=== PATIENT | female | born 1950 | race Caucasian/White ===

== ENCOUNTER → 2018-12-18 11:56 | Outpatient (CLI) | payer MEDICARE, OTHER, SELFPAY ==
[2018-12-18 12:43] LABS: Alanine Aminotransferase 27 IU/L (9-52); Albumin 4.5 g/dL (3.5-5.0); Albumin Globulin Ratio 1.9 (1.0-2.8); Alkaline Phosphatase 55 U/L (38-126); Aspartate Aminotransferase 23 IU/L (14-36); BUN Creatinine Ratio 24.4 (6-22); Bilirubin Total 0.6 mg/dL (0.2-1.3); Blood Urea Nitrogen 22 mg/dL (7-17); Carbon Dioxide 28 mmol/L (22-32); Chloride 103 mmol/L (98-107); Cholesterol 202 mg/dL (140-199); Estimated Glomerular Filt Rate > 60.0 mL/min (>60); Globulin 2.4 g/dL (1.7-4.1); Glucose 94 mg/dL (80-110); HDL Cholesterol 75 mg/dL (40-60); HEMOLYSIS < 15 (0-50); LDL Cholesterol Calculated 113 mg/dL (<100); Magnesium 2.2 mg/dL (1.6-2.3); Sodium 139 mmol/L (137-145); Total Protein 6.9 g/dL (6.3-8.2); Triglycerides 71 mg/dL (35-150)
== END ==
PROVIDERS: Family Provider Internal Medicine; PCP Internal Medicine; Visit Provider Specialist
DX: E78.5 Hyperlipidemia, unspecified (principal); I47.1 Supraventricular tachycardia
CPT/HCPCS: 36415; 80053; 80061; 83735

== ENCOUNTER → 2019-01-14 14:28 | Outpatient (CLI) | payer MEDICARE, OTHER, SELFPAY | PROVIDERS: Family Provider Internal Medicine; PCP Internal Medicine; Visit Provider Physician Assistant | DX: N39.0 Urinary tract infection, site not specified (principal) | CPT/HCPCS: 87086 ==

== ENCOUNTER → 2019-01-22 08:00 | Outpatient (CLI) | payer MEDICARE, OTHER, SELFPAY ==
--- NOTE | 2019-01-22 | DI.US.S_ITS ---
PROCEDURE: US ABD AORTA ANEURYSM SCREEN INDICATIONS: PALPABLE AORTA TECHNIQUE: Real time scanning was performed of the aorta and iliac arteries, with image documentation. COMPARISON: None. FINDINGS: Aorta: Proximal aortic diameter measures 2.2 cm. Mid-aorta measures 1.5 cm. Distal aortic diameter is 1.3 cm. Iliac arteries: Right common iliac artery measures 0.9 cm. Left common iliac artery measures 0.9 cm. IMPRESSION: Negative for aneurysm. Dictated by: Zac Marshall M.D. on 01/23/2019 at 12:28 Approved by: Zac Marshall M.D. on 01/23/2019 at 12:28
== END ==
PROVIDERS: Family Provider Internal Medicine; PCP Internal Medicine; Visit Provider Specialist
DX: R09.89 Other specified symptoms and signs involving the circulatory and respiratory systems (principal)
CPT/HCPCS: 76706

== ENCOUNTER → 2019-02-08 15:01 | Outpatient (CLI) | payer MEDICARE, OTHER, SELFPAY ==
--- NOTE | 2019-02-08 | DI.RAD.S_ITS ---
PROCEDURE: XR CHEST 2V INDICATIONS: COUGH TECHNIQUE: 2 views of the chest were acquired. COMPARISON: None. FINDINGS: Surgical changes and devices: None. Lungs and pleura: There is a 9 mm nodule in the right upper lobe. Lungs are otherwise clear. No pleural effusions or pneumothorax. Mediastinum: Mediastinal contours are normal. Heart size is normal. Bones and chest wall: No suspicious bony abnormalities. Soft tissues appear unremarkable. IMPRESSION: Question a 9 mm right upper lobe nodule. Chest CT is recommended for followup. Dictated by: Aubrey Stout M.D. on 02/08/2019 at 17:12 Approved by: Aubrey Stout M.D. on 02/08/2019 at 17:14
== END ==
LOC: LAB 15:02 → RAD 15:05
PROVIDERS: Family Provider Internal Medicine; PCP Internal Medicine; Visit Provider Internal Medicine
DX: R05 Cough (principal)
CPT/HCPCS: 71046

== ENCOUNTER → 2019-02-23 11:08 | Outpatient (CLI) | payer MEDICARE, OTHER, SELFPAY ==
--- NOTE | 2019-02-23 | DI.US.S_ITS ---
PROCEDURE: US THYROID INDICATIONS: FATIGUE TECHNIQUE: Real-time scanning was performed of the thyroid gland, with image documentation. COMPARISON: None. FINDINGS: Right: Thyroid lobe measures 5 x 0.8 x 1.1 cm, and is homogeneous in echotexture. Left: Thyroid lobe measures 4.0 x 0.5 x 1.2 cm, and is homogenous in echotexture. Isthmus: 2 mm thick. Nodule number: #1 Location: Upper pole right thyroid lobe Size: 0.3 x 0.2 x 0.2 cm. Composition: Cystic Echogenicity: Shape: Slight interval Margins: Smooth Echogenic foci: Punctate Total points: 3 ACR TI-RADS category: 3 Nodule number: #2 Location: Medial aspect of upper pole left thyroid lobe Size: 1.1 x 0.5 x 0.8 cm. Composition: Solid Echogenicity: Isoechoic to hypoechoic Shape: Wider than tall Margins: Smooth Echogenic foci: None Total points: 4 ACR TI-RADS category: 4 Nodule number: #3 Location: Lateral aspect of upper pole left renal Size: 5 x 3 x 4 mm. Composition: Solid Echogenicity: Hypoechoic Shape: Wider than tall Margins: Smooth Echogenic foci: None Total points: 4 ACR TI-RADS category: 4 IMPRESSION: 3 thyroid nodules as described in detail above. Sonographic followup is recommended. ACR TI-RADS definitions and recommendations: TI-RADS 1 (benign): 0 points. FNA not needed. TI-RADS 2 (not suspicious): 2 points. FNA not needed. TI-RADS 3 (mildly suspicious): 3 points. * FNA if 2.5 cm or larger, follow up if 1.5 cm or larger (1, 3, and 5 years). TI-RADS 4 (moderately suspicious): 4-6 points. * FNA if 1.5 cm or larger, follow up if 1 cm or larger (1, 2, 3, and 5 years). TI-RADS 5 (highly suspicious): 7 points or more. * FNA if 1 cm or larger, follow up if 0.5 cm or larger (every year for 5 years). Dictated by: Jd Clinton M.D. on 02/23/2019 at 14:26 Approved by: Jd Clinton M.D. on 02/23/2019 at 14:31
--- NOTE | 2019-02-23 11:15 | DI.CT.S_ITS ---
PROCEDURE: CT CHEST WO CON INDICATIONS: Cough. Nodule on prior Chest X-ray TECHNIQUE: Noncontrast 2.0-2.5 mm thick sections acquired from the pulmonary apices to the posterior costophrenic angles. 7 mm thick coronal and sagittal MIP reformats were then acquired. A low radiation dose technique was utilized. COMPARISON: [facility], CR, XR CHEST 2V, 02/08/2019, 15:10. FINDINGS: Image quality: Diagnostic, given the low radiation dose technique. Lungs and pleura: There is biapical scarring. 3-4 mm part solid nodular density in the anterior aspect of right middle lobe is seen series 3 image 33. No other pulmonary nodule or mass is seen. No pleural effusion or pneumothorax. Central and peripheral airway is patent. Mediastinum: Heart size is normal. No pericardial effusion. No mediastinal adenopathy by size criteria. Thoracic aorta and central pulmonary arteries are normal in size. Esophagus is normal in caliber. There is a small hiatal hernia. Bones and chest wall: No suspicious bony lesions. No vertebral body compression fractures. No axillary or supraclavicular adenopathy by size criteria. Thyroid gland is within normal limits. Abdomen: Visualized upper abdomen solid organs and bowel loops appear normal in the absence of contrast. IMPRESSION: 1. 3-4 mm part solid nodular density in the anterior aspect of right middle lobe. No other pulmonary nodular mass is seen. Biapical scarring. Consider followup study in 12 months. 2. No mediastinal or hilar lymphadenopathy. Fleischner Society criteria for SOLID lung nodule followup. Nodule size (mm)Low-risk patientHigh-risk patient<6 (single or multiple)No routine followup.Optional CT at 12 months. 6-8 (single or multiple)CT at 6-12 months, then optional CT at 18-24 mo.CT at 6-12 months, then CT at 18-24 months. >8 (single)CT at 3 months, PET-CT, or biopsy. Same as for low-risk pts. >8 (multiple)CT at 3-6 months, then optional CT at 18-24 mo.CT at 3-6 months, then CT at 18-24 months. Fleischner Society criteria for SUB-SOLID lung nodule followup. Solitary pure ground-glass nodules<6 mm (ground glass or part solid)No followup needed. 6 mm or larger (ground glass)CT at 6-12 months to confirm persistence, then CT every 2 years until 5 years.6 mm or larger (part solid)CT at 3-6 months to confirm persistence, then annual CT until 5 years if unchanged and solid component remains <6 mm. Multiple sub-solid nodules<6 mmCT at 3-6 months, then CT consider at 2 & 4 years for high risk patients. [address] at 3-6 months. Subsequent management based on most suspicious lesions. Recommendations do not apply to lung cancer screening, patients with immunosuppression, or patients with known primary cancer. Dictated by: Jd Clinton M.D. on 02/23/2019 at 14:16 Approved by: Jd Clinton M.D. on 02/23/2019 at 14:20
== END ==
PROVIDERS: PCP Internal Medicine; Visit Provider Internal Medicine
DX: R05 Cough (principal); R91.1 Solitary pulmonary nodule; R53.83 Other fatigue; E04.2 Nontoxic multinodular goiter
CPT/HCPCS: 71250; 76536

== ENCOUNTER → 2019-03-13 13:45 | Outpatient (CLI) | payer MEDICARE, OTHER, SELFPAY ==
--- NOTE | 2019-03-13 | DI.ECHO.S_ITS ---
[place] +---------+ Hospital +---------+ : : [address] : : : : [id number] : : : : Phone: [phone] Echocardiogram Report + + :Name: HARRIS NEVAREZ Study Date: 03/13/2019 Height: 66 in : :[facility] Exam Location: IS Weight: 151 lb : : Gender: Female BSA: 1.8 m2 : :: 1950 Age: 68 yrs BP: 120/70 mmHg: :Reason For Study: Palpitations : :Ordering Physician: Venkata : :Gregory Performed By: Melania Page : + + Interpretation Summary The left ventricle is normal in size, wall thickness, and systolic function without any focal wall motion abnormalities with the ejection fraction visually estimated to be 60-65%. Diastolic parameters suggest probable normal left ventricular diastolic function and normal filling pressures. There has been no significant change since the previous study. The right ventricle is normal in size and function and is unchanged compared to the previous study. The right ventricular systolic pressure is estimated to be at least 23 mmHg based on an estimated right atrial pressure of 8 mm Hg, and is similar compared to the previous study. Both atria are mildly dilated but are grossly appeared unchanged compared to the previous study. There is mild mitral regurgitation and mild tricuspid regurgitation that are unchanged compared to the previous study. There is no other significant valvular heart disease. The ascending aorta is mild-moderately enlarged but is unchanged compared to the previous study. Procedure: A two-dimensional transthoracic echocardiogram with color flow and Doppler was performed. The study quality was technically adequate. Comparison is made with the echocardiogram of 05/17/2016. The heart rate ranged between 52-62 bpm during the study. The patient had occasional PVCs during the exam. Left Ventricle: The left ventricle is normal in size, wall thickness, and systolic function without any focal wall motion abnormalities. The ejection fraction is estimated to be 60-65%. Diastolic parameters suggest probable normal left ventricular diastolic function and normal filling pressures. There has been no significant change since the previous study. Right Ventricle: The right ventricle is normal in size and function. This is unchanged compared to the previous study. Atria: Both atria are mildly dilated. This is grossly appeared unchanged compared to the previous study. The interatrial septum is intact with no evidence for an atrial septal defect. There is no Doppler evidence for an interatrial shunt. Mitral Valve: The mitral valve leaflets appear mildly thickened, but open well. There is a flat closure plane of the the mitral valve leaflets. There is mild mitral regurgitation. This is unchanged compared to the previous study. Aortic Valve: The aortic valve is trileaflet. The aortic valve is slightly calcified. The aortic valve opens well. No aortic regurgitation is present. Tricuspid Valve: The tricuspid valve is normal in structure and function. There is mild tricuspid regurgitation. This is unchanged compared to the previous study. The right ventricular systolic pressure is estimated to be at least 23 mmHg based on an estimated right atrial pressure of 8 mm Hg. This is similar compared to the previous study. Pulmonic Valve: The pulmonic valve is not well visualized. There is trace pulmonic regurgitation. There is no other significant valvular heart disease. Great Vessels: The aortic root is normal size. The ascending aorta is mild- moderately enlarged. This is unchanged compared to the previous study. The aortic arch is normal in size. The pulmonary is not well visualized. The IVC is dilated (diameter is greater than 2.1 cm) yet it collapses greater than 50% with a sniff. This suggests a right atrial pressure of 8 mm Hg. Pericardium/ Pleura There is no pericardial effusion. There is no pleural effusion. MMode/2D Measurements & Calculations LVIDd: 4.1 cm LVOT diam: 2.0 cm LVIDs: 3.1 cm Ao root diam: 3.4 cm FS: 25.0 % asc Aorta Diam: 3.9 cm EPSS: 0.09 cm Ao Arch Diam (Prox Trans): 3.0 cm IVSd: 0.62 cm LVPWd: 0.56 cm LV tijerina. diameter/BSA (cm/m^2): 2.3 LV sys. diameter/BSA (cm/m^2): 1.7 LA A2 area: 21.6 cm2 RA long axis: 5.9 cm LA A4 area: 20.1 cm2 RA area: 20.4 cm2 LA length (vol): 5.2 cm RA vol: 60.2 ml LA vol: 70.9 ml RA : 33.9 ml/m2 LA vol index: 39.9 ml/m2 IVC diam: 2.4 cm RVD1 (basal): 3.4 cm TAPSE: 2.2 cm Doppler Measurements & Calculations Ao V2 max: 134.4 cm/sec LVOT Max Waqar: 105.6 cm/sec Ao V2 mean: 88.2 cm/sec LV V1 max P.5 mmHg Ao max P.2 mmHg LV V1 VTI: 22.2 cm Ao mean P.5 mmHg KRYSTAL(I,D): 2.4 cm2 Ao V2 VTI: 28.8 cm KRYSTAL(V,D): 2.4 cm2 sev ratio: 0.77 KRYSTAL indexed to BSA (cm^2/m^2): 1.3 MV E max waqar: 73.5 cm/sec TR max waqar: 191.9 cm/sec MV A max waqar: 48.2 cm/sec TR max P.7 mmHg MV E/A: 1.5 PA V2 max: 66.1 cm/sec Med Peak E' Waqar: 5.6 cm/sec PA V2 mean: 49.7 cm/sec E/E' med: 13.2 PA mean P.0 mmHg Lat Peak E' Waqar: 9.0 cm/sec PA Accel Time: 0.13 sec E/E' lat: 8.2 E/e' average: 10.7 MV dec time: 0.21 sec MV P1/2t: 62.1 msec MV P1/2t max waqar: 74.9 cm/sec SV(LVOT): 68.4 ml MVA(P1/2t): 3.5 cm2 Reading Physician:JUAN
== END ==
PROVIDERS: PCP Internal Medicine; Visit Provider Specialist
DX: I08.1 Rheumatic disorders of both mitral and tricuspid valves (principal); I77.89 Other specified disorders of arteries and arterioles; R00.2 Palpitations
CPT/HCPCS: 93306

== ENCOUNTER → 2019-04-17 11:06 | Outpatient (CLI) | payer MEDICARE, OTHER, SELFPAY ==
[2019-04-17 12:25] LABS: BUN Creatinine Ratio 23.8 (6-22); Blood Urea Nitrogen 19 mg/dL (7-17); Calcium 10.1 mg/dL (8.4-10.2); Carbon Dioxide 29 mmol/L (22-32); Chloride 101 mmol/L (98-107); Cholesterol 220 mg/dL (140-199); Estimated Glomerular Filt Rate > 60.0 mL/min (>60); Glucose 87 mg/dL (80-110); HDL Cholesterol 71 mg/dL (40-60); HEMOLYSIS < 15 (0-50); LDL Cholesterol Calculated 135 mg/dL (<100); Potassium 4.6 mmol/L (3.4-5.1); Sodium 137 mmol/L (137-145); Triglycerides 69 mg/dL (35-150)
== END ==
PROVIDERS: PCP Internal Medicine; Visit Provider Specialist
DX: I47.1 Supraventricular tachycardia (principal); R00.2 Palpitations; E78.2 Mixed hyperlipidemia
CPT/HCPCS: 36415; 80048; 80061; 83735

== ENCOUNTER → 2019-05-14 11:33 | Outpatient (CLI) | payer MEDICARE, OTHER, SELFPAY ==
[2019-05-14 12:42] LABS: Add Manual Diff / Slide Review NO; Basophils Absolute Auto 0 /uL (0-100); Basophils Percent Auto 1.1 % (0-2); Eosinophils Absolute Auto 100 /uL (0-450); Eosinophils Percent Auto 2.7 % (2-4); Hematocrit 39.3 % (36-46); Hemoglobin 13.3 g/dL (12.0-16.0); Lymphocytes Absolute Auto 1300 /uL (1100-4500); Lymphocytes Percent Auto 31.3 % (25-40); Mean Corpuscular HGB Conc 33.8 % (30-36); Mean Corpuscular Volume 94.5 fL (80-100); Monocytes Absolute Auto 300 /uL (0-900); Monocytes Percent Auto 6.5 % (3-14); Neutrophils Absolute Auto 2500 /uL (1500-7000); Neutrophils Percent Auto 58.4 % (50-75); Platelet Count 181 X10^3/uL (150-400); Red Blood Cell Count 4.16 X10^6/uL (4.0-5.2); Red Cell Distribution Width 13.4 % (11.6-14.8); White Blood Cell Count 4.3 X10^3/uL (4.5-11.0)
[2019-05-17 09:25] LABS: Immunoglobulin E 10 kU/L (< 115)
== END ==
PROVIDERS: PCP Internal Medicine; Visit Provider Internal Medicine
DX: R05 Cough (principal)
CPT/HCPCS: 36415; 82785; 85025; 86003

== ENCOUNTER → 2019-05-18 12:53 | Outpatient (CLI) | payer MEDICARE, OTHER, SELFPAY ==
--- NOTE | 2019-05-22 08:05 | PM.PFT.1 ---
Pulmonary Function Test Referral & Results Date Patient Seen: 05/18/19 Requesting provider: Ryland Barraza Results: The spirometry demonstrates an FVC of 2.81 L which is 84% of predicted. The FEV1 was measured at 2.00 L which is 70% of predicted. The FEV1/FVC ratio was 71 which is 93% of predicted. Following the administration of bronchodilator there was of 43% improvement in FEF 25-75%. Lung volumes show an SVC of 2.70 L which is 86% of predicted. The diffusing capacity was measured at 23.6 for which is 87% of predicted. The maximum voluntary ventilation was reduced Interpretation: This study demonstrates mild obstructive lung disease with limited evidence of benefit following bronchodilator based on improvement in small airway flow (FEF 25-75%) as noted above Minimal reduction in lung volumes and diffusing capacity are also seen Clinical correlation suggested
== END ==
PROVIDERS: PCP Internal Medicine; Referring Provider Specialist; Visit Provider Internal Medicine
DX: R05 Cough (principal)
CPT/HCPCS: 94060; 94726; 94729

== ENCOUNTER → 2019-10-15 10:52 | Outpatient (CLI) | payer MEDICARE, OTHER, SELFPAY | PROVIDERS: PCP Internal Medicine; Visit Provider Physician Assistant Medical | DX: E78.2 Mixed hyperlipidemia (principal) ==

== ENCOUNTER → 2019-10-16 11:53 | Outpatient (CLI) | payer MEDICARE, OTHER, SELFPAY ==
[2019-10-16 12:38] LABS: Alanine Aminotransferase 17 IU/L (<35); Albumin 4.6 g/dL (3.5-5.0); Alkaline Phosphatase 65 U/L (38-126); Aspartate Aminotransferase 26 IU/L (14-36); Bilirubin Total 0.9 mg/dL (0.2-1.3); Blood Urea Nitrogen 18 mg/dL (7-17); Calcium 10.3 mg/dL (8.4-10.2); Carbon Dioxide 32 mmol/L (22-32); Chloride 102 mmol/L (98-107); Estimated Glomerular Filt Rate > 60.0 mL/min (>60); Globulin 2.3 g/dL (1.7-4.1); Glucose 92 mg/dL (80-110); HEMOLYSIS < 15 (0-50); Potassium 4.7 mmol/L (3.4-5.1); Sodium 140 mmol/L (137-145); Total Protein 6.9 g/dL (6.3-8.2)
[2019-10-18 09:19] LABS: Lipoprofile NMR SEE SEPARATE REPORTS
== END ==
PROVIDERS: PCP Internal Medicine; Visit Provider Specialist
DX: E78.2 Mixed hyperlipidemia (principal)
CPT/HCPCS: 36415; 80053; 83704

== ENCOUNTER → 2019-12-31 13:34 | Outpatient (CLI) | payer MEDICARE, OTHER, SELFPAY ==
--- NOTE | 2019-12-31 14:16 | DI.CT.S_ITS ---
PROCEDURE: CT CHEST WO CON INDICATIONS: Solitary pulmonary nodule TECHNIQUE: Noncontrast 2.0-2.5 mm thick sections acquired from the pulmonary apices to the posterior costophrenic angles. 7 mm thick axial MIP and 5 mm coronal and sagittal reformats were then acquired. A low radiation dose technique was utilized. COMPARISON: [facility], CT, CT CHEST WO CON, 02/23/2019, 11:16. FINDINGS: Image quality: Diagnostic, given the low radiation dose technique. Lungs and pleura: Mild biapical pleural scarring. A few scattered pulmonary nodules. For example: -Right middle lobe pulmonary nodule measuring 4 mm, (3/165), unchanged. -Left lower lobe superior segment measuring 3 mm, (3/82), unchanged. -Left lower lobe inferomedially measuring 4 mm, (3/244), unchanged. No new or enlarging pulmonary nodule. No mass or consolidation. Airways are clear. No pleural effusion. Mediastinum: Heart size is normal. No pericardial effusion. No mediastinal adenopathy by size criteria. Thoracic aorta and central pulmonary arteries are normal in size. Esophagus is normal in caliber. No hiatal hernia. Bones and chest wall: No suspicious bony lesions. No vertebral body compression fractures. No axillary or supraclavicular adenopathy by size criteria. Thyroid gland is unremarkable. Abdomen: Visualized upper abdomen solid organs and bowel loops appear normal in the absence of contrast. IMPRESSION: A few pulmonary nodules measuring 4 mm or less are stable since 02/23/2019. No new or enlarging pulmonary nodules. Fleischner Society criteria for SOLID lung nodule followup. Nodule size (mm)Low-risk patientHigh-risk patient<6 (single or multiple)No routine followup.Optional CT at 12 months. 6-8 (single or multiple)CT at 6-12 months, then optional CT at 18-24 mo.CT at 6-12 months, then CT at 18-24 months. >8 (single)CT at 3 months, PET-CT, or biopsy. Same as for low-risk pts. >8 (multiple)CT at 3-6 months, then optional CT at 18-24 mo.CT at 3-6 months, then CT at 18-24 months. Fleischner Society criteria for SUB-SOLID lung nodule followup. Solitary pure ground-glass nodules<6 mm (ground glass or part solid)No followup needed. 6 mm or larger (ground glass)CT at 6-12 months to confirm persistence, then CT every 2 years until 5 years.6 mm or larger (part solid)CT at 3-6 months to confirm persistence, then annual CT until 5 years if unchanged and solid component remains <6 mm. Multiple sub-solid nodules<6 mmCT at 3-6 months, then CT consider at 2 & 4 years for high risk patients. [address] at 3-6 months. Subsequent management based on most suspicious lesions. Recommendations do not apply to lung cancer screening, patients with immunosuppression, or patients with known primary cancer. Dictated by: Mason Mondragon M.D. on 12/31/2019 at 14:15 Approved by: Mason Mondragon M.D. on 12/31/2019 at 14:23
== END ==
PROVIDERS: PCP Internal Medicine; Referring Provider Internal Medicine; Visit Provider Internal Medicine
DX: R91.8 Other nonspecific abnormal finding of lung field (principal)
CPT/HCPCS: 71250

== ENCOUNTER → 2020-01-03 13:13 | Outpatient (CLI) | payer MEDICARE, OTHER, SELFPAY ==
--- NOTE | 2020-01-03 | DI.US.S_ITS ---
PROCEDURE: US THYROID INDICATIONS: NONTOXIC SINGLE THYROID NODULE TECHNIQUE: Real-time scanning was performed of the thyroid gland, with image documentation. COMPARISON: [facility]ed [facility], US, US THYROID, 02/23/2019, 11:57. FINDINGS: Right: Thyroid lobe measures 3.6 x 1.2 x 0.8 cm, and is homogeneous in echotexture. Multiple sub-5 mm colloid cyst. Left: Thyroid lobe measures 3.3 x 1.0 x 1.1 cm, and is homogenous in echotexture. Isthmus: 3.0 mm thick. Nodule number: 1 Location: Left mid to superior Size: Unchanged at 1.1 x 0.6 x 0.8 cm. Composition: Solid Echogenicity: Hypoechoic Shape: wider than tall. Margins: Smooth Echogenic foci: None Total points: 4 ACR TI-RADS category: Moderately suspicious Nodule number: 2 Location: Left superior Size: Unchanged 0.5 x 0.3 x 0.4 cm. Composition: Predominantly solid Echogenicity: Hypoechoic Shape: wider than tall. Margins: Smooth Echogenic foci: None Total points: 4 ACR TI-RADS category: Moderately suspicious IMPRESSION: Stable appearance of left thyroid nodules. Recommend continued followup ultrasound as detailed below. ACR TI-RADS definitions and recommendations: TI-RADS 1 (benign): 0 points. FNA not needed. TI-RADS 2 (not suspicious): 2 points. FNA not needed. TI-RADS 3 (mildly suspicious): 3 points. * FNA if 2.5 cm or larger, follow up if 1.5 cm or larger (at 1, 3, and 5 years). TI-RADS 4 (moderately suspicious): 4-6 points. * FNA if 1.5 cm or larger, follow up if 1 cm or larger (at 1, 2, 3, and 5 years). TI-RADS 5 (highly suspicious): 7 points or more. * FNA if 1 cm or larger, follow up if 0.5 cm or larger (every year for 5 years). Dictated by: Vamsi PRIDE Interpreted: Jd Clinton MD on 01/03/2020 at 14:41 Approved by: Jd Clinton M.D. on 01/03/2020 at 16:19
== END ==
PROVIDERS: PCP Internal Medicine; Referring Provider Internal Medicine; Visit Provider Internal Medicine
DX: E04.2 Nontoxic multinodular goiter (principal)
CPT/HCPCS: 76536

== ENCOUNTER → 2020-07-12 12:57 | Outpatient (CLI) | payer MEDICARE, OTHER, SELFPAY ==
--- NOTE | 2020-07-12 | DI.MG.S_ITS ---
BILATERAL DIGITAL SCREENING MAMMOGRAM 3D/2D WITH CAD: 07/12/2020 CLINICAL: Routine screening. Comparison is made to exams dated: 03/31/2018 mammogram - [facility], 12/03/2014 mammogram, and 12/05/2013 mammogram - [facility]. The tissue of both breasts is heterogeneously dense. This may lower the sensitivity of mammography. Current study was also evaluated with a Computer Aided Detection (CAD) system. No significant masses, calcifications, or other findings are seen in either breast. There has been no significant interval change. IMPRESSION: NEGATIVE There is no mammographic evidence of malignancy. A 1 year screening mammogram is recommended. This exam was interpreted at Station ID: [id number]. NOTE: For mammograms, a report in lay terms will be sent to the patient. Approximately 15% of breast malignancies will not be visualized mammographically. In the management of a palpable breast mass, a negative mammogram must not discourage biopsy of a clinically suspicious lesion. Electronically Signed By: Rickie javier/ariana:07/14/2020 08:18:38 letter sent: Normal Exam ACR BI-RADS Category 1: Negative [id number]
== END ==
PROVIDERS: PCP Family Medicine; Referring Provider Family Medicine; Visit Provider Family Medicine
DX: Z12.31 Encounter for screening mammogram for malignant neoplasm of breast (principal)
CPT/HCPCS: 77063; 77067

== ENCOUNTER → 2020-12-03 13:03 | Outpatient (CLI) | payer MEDICARE, OTHER, SELFPAY ==
--- NOTE | 2020-12-03 13:06 | DI.US.S_ITS ---
PROCEDURE: US THYROID INDICATIONS: THYROID NODULES TECHNIQUE: Real-time scanning was performed of the thyroid gland, with image documentation. COMPARISON: [facility], US, US THYROID, 01/03/2020, 13:32. FINDINGS: Right: Thyroid lobe measures 5.2 x 1.4 x 1.2 cm, and is homogeneous in echotexture. Multiple sub 5 mm colloid cysts are again noted. Left: Thyroid lobe measures 4.1 x 1.2 x 1.0 cm, and is homogenous in echotexture. Previously described left thyroid nodule in the superior, more medial aspect of the left thyroid lobe is no longer visualized on today's study. Isthmus: 2 mm thick. Nodule number: 1 Location: Superior left thyroid lobe Size: 1.4 x 1.0 x 0.6 cm. Previously measured 1.1 x 0.6 x 0.8 cm. Composition: Solid Echogenicity: Hypoechoic Shape: wider than tall. Margins: Smooth Echogenic foci: None. Total points: 4 ACR TI-RADS category: TI-RADS 4, moderately suspicious IMPRESSION: 1. Mild interval enlargement of superior left TI-RADS 4 thyroid lobe nodule which does not meet consensus criteria for fine-needle aspiration at this time. Recommend continued follow-up ultrasound as detailed below. 2. Previously described left superior, mid thyroid lobe nodule is no longer visualized. ACR TI-RADS definitions and recommendations: TI-RADS 1 (benign): 0 points. FNA not needed. TI-RADS 2 (not suspicious): 2 points. FNA not needed. TI-RADS 3 (mildly suspicious): 3 points. * FNA if 2.5 cm or larger, follow up if 1.5 cm or larger (at 1, 3, and 5 years). TI-RADS 4 (moderately suspicious): 4-6 points. * FNA if 1.5 cm or larger, follow up if 1 cm or larger (at 1, 2, 3, and 5 years). TI-RADS 5 (highly suspicious): 7 points or more. * FNA if 1 cm or larger, follow up if 0.5 cm or larger (every year for 5 years). Dictated by: Rickie Lombardo M.D. on 12/03/2020 at 17:07 Approved by: Rickie Lombardo M.D. on 12/03/2020 at 17:12
--- NOTE | 2020-12-03 13:06 | DI.CT.S_ITS ---
PROCEDURE: CT CHEST WO CON INDICATIONS: lung nodules 1 year f/u TECHNIQUE: Noncontrast 2.0-2.5 mm thick sections acquired from the pulmonary apices to the posterior costophrenic angles. 7 mm thick axial MIP and 5 mm coronal and sagittal reformats were then acquired. A low radiation dose technique was utilized. COMPARISON: Merged [facility], CT, CT CHEST WO CON, 12/31/2019, 13:33. FINDINGS: Image quality: Diagnostic, given the low radiation dose technique. Lungs and pleura: Mild biapical pleural scarring. A few scattered pulmonary nodules which are stable since January 2019. For example: -Right middle lobe measuring 4 mm, (2/158), unchanged. -Left lower lobe superiorly measuring 3 mm, (2/77), unchanged. -Left lower lobe measuring 4 mm, (2/240), unchanged. No new or enlarging pulmonary nodules. Central airways are clear. No acute airspace opacity. No pleural effusion. No pneumothorax. Mediastinum: Heart size is normal. No pericardial effusion. No mediastinal adenopathy by size criteria. Thoracic aorta and central pulmonary arteries are normal in size. Esophagus is normal in caliber. No hiatal hernia. Bones and chest wall: No suspicious bony lesions. No vertebral body compression fractures. No axillary or supraclavicular adenopathy by size criteria. Thyroid gland is unremarkable. Abdomen: Visualized upper abdomen solid organs and bowel loops appear normal in the absence of contrast. IMPRESSION: 1. Stable small pulmonary nodules measuring 4 mm or less since January 2019. 2. No new or enlarging pulmonary nodules. 3. No acute airspace opacity. Fleischner Society criteria for SOLID lung nodule followup. Nodule size (mm)Low-risk patientHigh-risk patient<6 (single or multiple)No routine followup.Optional CT at 12 months. 6-8 (single or multiple)CT at 6-12 months, then optional CT at 18-24 mo.CT at 6-12 months, then CT at 18-24 months. >8 (single)CT at 3 months, PET-CT, or biopsy. Same as for low-risk pts. >8 (multiple)CT at 3-6 months, then optional CT at 18-24 mo.CT at 3-6 months, then CT at 18-24 months. Fleischner Society criteria for SUB-SOLID lung nodule followup. Solitary pure ground-glass nodules<6 mm (ground glass or part solid)No followup needed. 6 mm or larger (ground glass)CT at 6-12 months to confirm persistence, then CT every 2 years until 5 years.6 mm or larger (part solid)CT at 3-6 months to confirm persistence, then annual CT until 5 years if unchanged and solid component remains <6 mm. Multiple sub-solid nodules<6 mmCT at 3-6 months, then CT consider at 2 & 4 years for high risk patients. [address] at 3-6 months. Subsequent management based on most suspicious lesions. Recommendations do not apply to lung cancer screening, patients with immunosuppression, or patients with known primary cancer. Dictated by: Mason Mondragon M.D. on 12/03/2020 at 12:59 Approved by: Mason Mondragon M.D. on 12/03/2020 at 13:08
== END ==
PROVIDERS: PCP Family Medicine; Referring Provider Family Medicine; Visit Provider Family Medicine
DX: E04.1 Nontoxic single thyroid nodule (principal); R91.8 Other nonspecific abnormal finding of lung field
CPT/HCPCS: 71250; 76536

== ENCOUNTER → 2020-12-24 15:29 | Outpatient (CLI) | payer MEDICARE, OTHER, SELFPAY ==
[2020-12-24] MEDS: COVID-19 VACC #1, MRNA(MOD) 100 MCG/0.5 ML VIAL IM (15:34)
== END ==
PROVIDERS: PCP Family Medicine; Visit Provider Internal Medicine
DX: Z23 Encounter for immunization (principal)
CPT/HCPCS: 0011A; 91301

== ENCOUNTER → 2021-01-19 10:11 | Outpatient (CLI) | payer MEDICARE, OTHER, SELFPAY ==
[2021-01-19 11:23] LABS: Alanine Aminotransferase 16 IU/L (<35); Albumin 4.4 g/dL (3.5-5.0); Albumin Globulin Ratio 1.6 (1.0-2.8); Alkaline Phosphatase 68 U/L (38-126); Aspartate Aminotransferase 26 IU/L (14-36); BUN Creatinine Ratio 28.4 (6-22); Bilirubin Total 0.5 mg/dL (0.2-1.3); Blood Urea Nitrogen 25 mg/dL (7-17); Calcium 9.7 mg/dL (8.4-10.2); Carbon Dioxide 30 mmol/L (22-32); Chloride 104 mmol/L (98-107); Cholesterol 183 mg/dL (140-199); Estimated Glomerular Filt Rate > 60.0 mL/min (>60); Globulin 2.7 g/dL (1.7-4.1); Glucose 99 mg/dL (80-110); HDL Cholesterol 82 mg/dL (40-60); HEMOLYSIS < 15 (0-50); LDL Cholesterol Calculated 88 mg/dL (<100); Potassium 4.6 mmol/L (3.4-5.1); Sodium 137 mmol/L (137-145); Total Protein 7.1 g/dL (6.3-8.2); Triglycerides 65 mg/dL (35-150)
[2021-01-19 11:48] LABS: Thyroid Stimulating Hormone 1.71 uIU/mL (0.47-4.68)
== END ==
PROVIDERS: PCP Family Medicine; Referring Provider Family Medicine; Visit Provider Family Medicine
DX: E04.1 Nontoxic single thyroid nodule (principal); E78.5 Hyperlipidemia, unspecified; Z13.29 Encounter for screening for other suspected endocrine disorder; Z13.6 Encounter for screening for cardiovascular disorders
CPT/HCPCS: 36415; 80053; 80061; 84443

== ENCOUNTER → 2021-01-21 15:09 | Outpatient (CLI) | payer MEDICARE, OTHER, SELFPAY ==
[2021-01-21] MEDS: COVID-19 VACC #2, MRNA(MOD) 100 MCG/0.5 ML VIAL IM (15:24)
== END ==
PROVIDERS: PCP Family Medicine; Visit Provider Internal Medicine
DX: Z23 Encounter for immunization (principal)
CPT/HCPCS: 0012A; 91301

== ENCOUNTER → 2021-01-23 10:39 | Outpatient (CLI) | payer MEDICARE, OTHER, SELFPAY ==
--- NOTE | 2021-01-23 10:41 | DI.US.S_ITS ---
PROCEDURE: US SOFT TISSUE HEAD AND NECK INDICATIONS: LEFT SUPRACLAVICULAR LUMP TECHNIQUE: Real-time scanning was performed of the neck region of interest, with image documentation. COMPARISON: [facility], CT, CT CHEST WO CON, 12/03/2020, 13:15. [facility], US, US THYROID, 12/03/2020, 13:29. FINDINGS: Scanning is performed at the area of clinical concern involving the left supraclavicular region. At this site, there is a normal appearing lymph node seen, with a normal appearing, fatty hilum that measures 7 x 4 x 9 mm. IMPRESSION: Normal appearing, nonenlarged lymph node seen at the area of the palpable lump involving the left supraclavicular region. Dictated by: Zac Marshall M.D. on 01/23/2021 at 12:45 Approved by: Zac Marshall M.D. on 01/23/2021 at 12:46
== END ==
PROVIDERS: PCP Family Medicine; Referring Provider Family Medicine; Visit Provider Family Medicine
DX: M85.612 Other cyst of bone, left shoulder (principal)
CPT/HCPCS: 76536

== ENCOUNTER → 2021-04-13 11:09 | Outpatient (CLI) | payer MEDICARE, OTHER, SELFPAY ==
[2021-04-13 13:39] LABS: COVID19 -Nasal RAPID Negative (Negative)
== END ==
PROVIDERS: PCP Family Medicine; Visit Provider Student in an Organized Health Care Education/Training Program
DX: Z01.812 Encounter for preprocedural laboratory examination (principal); Z20.822 Contact with and (suspected) exposure to COVID-19
CPT/HCPCS: 87635; C9803

== ENCOUNTER 2021-04-15 13:55 | Day surgery (SDC) | payer MEDICARE, OTHER, SELFPAY ==
[2021-04-15 14:16] VITALS: BP 134/76; PULSE 69; RESP 16; TEMP 37.2; O2SAT 99; BMI 24.3
[2021-04-15] MEDS: SODIUM CHLORIDE 0.9% 1,000 ML 84 ML IV (14:32)
--- NOTE | 2021-04-15 15:04 | PM.HP.1 ---
History of Present Illness History of Present Illness Date Patient Seen: 04/15/21 Chief complaint: SDC Narrative: History of polyps and need for screening Patient History Medical History (Updated 02/12/21 @ 10:41 by Milton Wilder LPN) Chronic cough Hyperlipidemia Pulmonary nodule SVT (supraventricular tachycardia) Thyroid nodule Family & Social History Social History: household members spouse Tobacco & Substance use: Smoking Status Never smoker alcohol intake current alcohol intake frequency a few times a week Substance Use Type does not use Meds Home Medications and Allergies Home Medications Medication Instructions Recorded Confirmed Type diltiazem HCl 120 mg 120 mg PO DAILY 01/14/19 04/15/21 History capsule,extended release 24 hr ascorbic acid (vitamin C) 1,000 mg 500 mg PO BID 05/12/20 04/15/21 History tablet aspirin 81 mg tablet,delayed 81 mg PO DAILY 05/12/20 04/15/21 History release atorvastatin 10 mg tablet 10 mg PO DAILY 05/12/20 04/15/21 History cholecalciferol (vitamin D3) 125 125 mcg PO DAILY 05/12/20 04/15/21 History mcg (5,000 unit) capsule cyanocobalamin (vitamin B-12) 1,000 mcg PO DAILY 05/12/20 04/15/21 History 1,000 mcg tablet,extended release magnesium oxide 400 mg PO DAILY 05/12/20 04/15/21 History estradiol See Rx Instructions .ROUTE 03/26/21 04/15/21 Rx .COMPLEX #1 ea Allergies Allergy/AdvReac Type Severity Reaction Status Date / Time No Known Drug Allergies Allergy Verified 01/16/21 11:47 Exam Vital Signs (past 8 hours): - 04/15/21 14:16 Temperature 98.9 F Pulse Rate 69 Respiratory Rate 16 Blood Pressure 134/76 Pulse Oximetry 99 Oxygen Delivery Method Room Air Narrative Exam Narrative: Oropharynx free of lesions Chest clear to auscultation percussion Cardiac exam reveals no S3 or murmur Assessment & Plan Assessment & Plan narrative: History of polyps need for follow-up colonoscopy risks benefits and alternatives been explained.
--- NOTE | 2021-04-15 15:06 | PM.OP.ENDO ---
Operative Date/Time/Diagnoses Date of procedure: 04/15/21 Pre-op diagnosis: See indication and findings Procedure & Clinicians Study performed: Colonoscopy Same procedure as scheduled: Yes Indications: History of colon polyps need for follow-up colonoscopy Surgeon: Hayley Dillon Procedure Notes Procedure in detail: After informed consent was obtained the patient was placed in left lateral decubitus position. The video colonoscope was inserted to the rectum slowly advanced to the cecum. On slow withdrawal mucosa was carefully examined. The scope was removed. The patient tolerated procedure well preparation was good Blood loss none Complications none Sedation MAC Findings 1. Extensive pancolonic diverticulosis though less so in the transverse colon. Certainly the sigmoid colon is quite adhesed and fixed. Multiple diverticula in the cecum. 2. Otherwise negative colonoscopy to cecum. As per new colonoscopy screening guidelines I would suggest she have follow-up in 10 years. It should be done under anesthesia.
[2021-04-15 15:36] VITALS: BP 122/67; PULSE 80; RESP 15; TEMP 36.3; O2SAT 96
[2021-04-15 15:41] VITALS: BP 122/77; PULSE 82; RESP 12; O2SAT 96
[2021-04-15 15:46] VITALS: BP 119/71; PULSE 80; RESP 14; O2SAT 98
[2021-04-15 15:51] VITALS: BP 135/71; PULSE 72; RESP 20; TEMP 36.4; O2SAT 99
[2021-04-15 16:06] VITALS: BP 126/76; PULSE 76; RESP 14; TEMP 36.7; O2SAT 98
--- NOTE | 2021-04-15 16:10 | SUR.PHASEII ---
pt to phase 2 and ready to be discharged. Pt in bathroom. Pt. Given discharge instructions and pt has diverticulosis and this was explained to her. Instructed to increase the fiber in her diet.
== END 2021-04-15 16:18 | disposition home or self-care (01) ==
PROVIDERS: PCP Family Medicine; Referring Provider Internal Medicine Gastroenterology; Visit Provider Internal Medicine Gastroenterology
PROC: 0DJD8ZZ Inspection of Lower Intestinal Tract, Via Natural or Artificial Opening Endoscopic (ICD-10-PCS; CPT 45378; principal; 2021-04-15 14:30)
DX: Z12.11 Encounter for screening for malignant neoplasm of colon (principal); E78.5 Hyperlipidemia, unspecified; I47.1 Supraventricular tachycardia; Z86.010 Personal history of colon polyps; K57.30 Diverticulosis of large intestine without perforation or abscess without bleeding
CPT/HCPCS: G0105; J2250; J2405; J2704; J3010

== ENCOUNTER → 2021-04-30 09:45 | Outpatient (CLI) | payer MEDICARE, OTHER, SELFPAY ==
[2021-04-30 11:32] LABS: Alanine Aminotransferase 20 IU/L (<35); Albumin 4.1 g/dL (3.5-5.0); Albumin Globulin Ratio 1.6 (1.0-2.8); Alkaline Phosphatase 80 U/L (38-126); Aspartate Aminotransferase 30 IU/L (14-36); BUN Creatinine Ratio 22.4 (6-22); Bilirubin Total 0.5 mg/dL (0.2-1.3); Blood Urea Nitrogen 19 mg/dL (7-17); Carbon Dioxide 27 mmol/L (22-32); Chloride 104 mmol/L (98-107); Estimated Glomerular Filt Rate > 60.0 mL/min (>60); Globulin 2.5 g/dL (1.7-4.1); Glucose 93 mg/dL (80-110); HEMOLYSIS < 15 (0-50); Potassium 4.5 mmol/L (3.4-5.1); Sodium 138 mmol/L (137-145); Total Protein 6.6 g/dL (6.3-8.2)
== END ==
PROVIDERS: PCP Family Medicine; Referring Provider Physician Assistant Medical; Visit Provider Specialist
DX: E78.2 Mixed hyperlipidemia (principal)
CPT/HCPCS: 36415; 80053

== ENCOUNTER → 2021-08-11 15:10 | Outpatient (CLI) | payer MEDICARE, OTHER, SELFPAY ==
--- NOTE | 2021-08-11 15:12 | DI.RAD.S_ITS ---
PROCEDURE: XR SHOULDER RT MIN 2V INDICATIONS: shoulder pain, right TECHNIQUE: Three views of the shoulder were acquired. COMPARISON: None. FINDINGS: Bones: No fractures or dislocations. Moderate degenerative changes at the acromioclavicular joint. Subcortical cystic changes in the lateral humeral head. No suspicious bony lesions. Visualized ribs appear intact. Soft tissues: No suspicious soft tissue calcifications. IMPRESSION: 1. Moderate AC joint degeneration. 2. Subcortical cystic change at the rotator cuff insertion may indicate mild degeneration. Dictated by: Radha Harvey M.D. on 08/11/2021 at 22:20 Approved by: Radha Harvey M.D. on 08/11/2021 at 22:22
== END ==
PROVIDERS: PCP Family Medicine; Referring Provider Family Medicine; Visit Provider Family Medicine
DX: M25.511 Pain in right shoulder (principal); M19.011 Primary osteoarthritis, right shoulder
CPT/HCPCS: 73030

== ENCOUNTER → 2021-09-08 16:59 | Outpatient (CLI) | payer MEDICARE, OTHER, SELFPAY | PROVIDERS: PCP Family Medicine; Referring Provider Nurse Practitioner Family; Visit Provider Nurse Practitioner Family | DX: R30.9 Painful micturition, unspecified (principal) | CPT/HCPCS: 87077; 87086; 87186 ==

== ENCOUNTER → 2021-09-15 11:38 | Outpatient (CLI) | payer MEDICARE, OTHER, SELFPAY | PROVIDERS: PCP Family Medicine; Referring Provider Nurse Practitioner Family; Visit Provider Nurse Practitioner Family | DX: N30.01 Acute cystitis with hematuria (principal) | CPT/HCPCS: 87086 ==

== ENCOUNTER → 2021-12-04 17:56 | Outpatient (CLI) | payer MEDICARE, OTHER, SELFPAY ==
--- NOTE | 2021-12-04 17:58 | DI.MRI.S_ITS ---
PROCEDURE: MR SHOULDER RT WO CON INDICATIONS: Adhesive capsulitis of right shoulder TECHNIQUE: Noncontrast oblique coronal T2 fast spin echo with fat saturation, oblique sagittal T1 spin echo and T2 fast spin echo with fat saturation, axial T1 spin echo and T2 fast spin echo with fat saturation through the shoulder. COMPARISON: [facility], CT, CT CHEST WO CON, 12/03/2020, 13:15. FINDINGS: Image quality: Excellent. Rotator cuff: There is full-thickness tear of the supraspinatus tendon measuring approximately 1.2 x 1.1 cm. There is tendon thickening and heterogeneous hyperintense signal of the subscapularis tendon consistent with high-grade infraspinatus tendinitis. Mild infraspinatus tendinitis is present. Sagittal images demonstrate mild supraspinatus and infraspinatus muscle atrophy. Bones and bursae: No bone marrow contusions or fractures. Moderate acromioclavicular and glenohumeral joint degeneration. The acromion demonstrates conventional anatomy, without an os acromiale. Small glenohumeral joint effusion. No pathologic subacromial-subdeltoid or subcoracoid bursal fluid is present. Capsule and soft tissues: There is degenerative fraying of the glenoid labrum. The long head of the biceps tendon demonstrates normal location. There is tendon thickening and fluid collection within the long head of the biceps tendon sheath consistent with tendinitis and tenosynovitis. The rotator interval appears normal, without fibrosis. The coracohumeral ligament is normal in thickness. There is a complex cyst in the spinoglenoid notch measuring approximately 1.3 x 0.9 x 1.1 cm, most likely a ganglion cyst. There is no definitive evidence for infraspinatus nerve entrapment. IMPRESSION: 1. Full-thickness tear of the supraspinatus tendon. There is mild supraspinatus muscle atrophy. 2. Severe subscapularis tendinitis. 3. Tendinitis and tenosynovitis of the long head of the biceps tendon. 4. A 1.3 x 0.9 x 1 point cm complex cyst in the spinoglenoid notch, most likely a ganglion cyst. A differential diagnosis is a paralabral cyst. There is no evidence for suprascapular nerve entrapment. 5. Degenerative labral fraying. 6. Moderate acromioclavicular and glenohumeral joint degeneration. Dictated by: Aubrey Stout M.D. on 12/07/2021 at 8:36 Approved by: Aubrey Stout M.D. on 12/07/2021 at 10:26
== END ==
PROVIDERS: PCP Family Medicine; Referring Provider Orthopaedic Surgery; Visit Provider Orthopaedic Surgery
DX: M75.01 Adhesive capsulitis of right shoulder (principal); M75.121 Complete rotator cuff tear or rupture of right shoulder, not specified as traumatic; M75.21 Bicipital tendinitis, right shoulder; M19.011 Primary osteoarthritis, right shoulder; M25.811 Other specified joint disorders, right shoulder
CPT/HCPCS: 73221

== ENCOUNTER 2022-01-01 11:26 | Emergency (ER) | payer MEDICARE, OTHER, SELFPAY ==
[2022-01-01 11:30] VITALS: BP 129/76; PULSE 78; RESP 18; TEMP 36.5; O2SAT 98; BMI 25.0
--- NOTE | 2022-01-01 12:22 | ED.ABDPAIN ---
HPI - Abdominal Pain <Arthur Hills PA-C - Last Filed: 01/01/22 15:45> General Chief Complaint: Abdominal Pain Stated Complaint: stomach bloating/pain, nausea post surgery Time Seen by Provider: 01/01/22 12:10 Source: patient Mode of arrival: Ambulatory History of Present Illness HPI narrative: Patient is presents to the ED complaining of bloating abdominal pain and nausea for the past few days. She reports having rotator cuff surgery on the right shoulder approximately 1 week ago. She was given Percocet for pain when she started taking her Percocet she started having increased nausea which she says is typical for her in regards to taking pain medication. She said most of the time the nausea subsides after a few days however has continued on for the entire week. She denies any vomiting no diarrhea no fever no cough. She has not been able to drink much or eat much secondary to the nausea. She has extreme bloating and gas of which has caused some increased abdominal pain. She reports a history of diverticulitis based on her last colonoscopy last year. She denies any bloody stool or black tarry stool. Last bowel movement was today which appeared to be hard but normal. No reported trauma or recent fall. Related Data Home Medications Medication Instructions Recorded Confirmed diltiazem HCl 120 mg 120 mg PO DAILY 01/14/19 09/08/21 capsule,extended release 24 hr (Cartia XT) ascorbic acid (vitamin C) 1,000 mg 500 mg PO BID 05/12/20 09/08/21 tablet aspirin 81 mg tablet,delayed 81 mg PO DAILY 05/12/20 09/08/21 release (Adult Aspirin Regimen) atorvastatin 10 mg tablet (Lipitor) 10 mg PO DAILY 05/12/20 09/08/21 cholecalciferol (vitamin D3) 125 125 mcg PO DAILY 05/12/20 09/08/21 mcg (5,000 unit) capsule cyanocobalamin (vitamin B-12) 1,000 mcg PO DAILY 05/12/20 09/08/21 1,000 mcg tablet,extended release (Vitamin B-12 ER) magnesium oxide 400 mg PO DAILY 05/12/20 09/08/21 Previous Rx's Medication Instructions Recorded estradiol (Estring) See Rx Instructions .ROUTE 05/12/21 .COMPLEX #1 ea montelukast 10 mg tablet 10 mg PO BEDTIME #90 tab 05/29/21 (Singulair) phenazopyridine 200 mg tablet 200 mg PO TID 0 Days #6 tab 09/15/21 (Pyridium) sulfamethoxazole 800 1 tab PO BID #10 tab 09/15/21 mg-trimethoprim 160 mg tablet ciprofloxacin HCl 500 mg tablet 500 mg PO BID #10 tab 01/01/22 (Cipro) dicyclomine 20 mg tablet 20 mg PO QID #30 tab 01/01/22 promethazine 25 mg tablet 25 mg PO Q6H PRN #14 tab 01/01/22 Allergies Allergy/AdvReac Type Severity Reaction Status Date / Time No Known Drug Allergies Allergy Verified 01/01/22 11:29 Review of Systems <Arthur Hills PA-C - Last Filed: 01/01/22 15:45> Review of Systems ROS Unobtainable: All systems reviewed & are unremarkable except as noted in HPI and below Constitutional Constitutional: Denies chills, Denies fatigue, Denies fever(s), Denies frequent falls, Denies lethargy and Denies weakness Eyes Eyes: Denies change in vision, Denies eye discharge, Denies irritation and Denies loss of vision ENT Ears, Nose, Mouth, and Throat: Denies change in voice, Denies dizziness, Denies neck pain, Denies sore throat and Denies throat swelling Cardiovascular Cardiovascular: Denies chest pain, Denies irregular heart rhythm, Denies lightheadedness, Denies palpitations, Denies dyspnea, Denies dyspnea on exertion and Denies orthopnea Respiratory Respiratory: Denies cough, Denies dyspnea, Denies dyspnea on exertion and Denies wheezing Gastrointestinal Gastrointestinal: Reports abdominal pain, Reports bloating, Denies change in bowel habits, Denies diarrhea, Reports nausea and Denies vomiting Genitourinary Genitourinary: Denies hematuria, Denies flank pain, Denies urinary incontinence and Denies urinary urgency Musculoskeletal Musculoskeletal: Denies back pain, Denies muscle weakness, Denies neck pain, Denies numbness and Denies tingling Integumentary/Breasts Skin/Breast: Denies pruritus, Denies erythema, Denies rash and Denies wounds Neurologic Neurologic: Denies behavioral changes, Denies confusion, Denies dizziness, Denies frequent falls, Denies loss of vision, Denies numbness, Denies tingling and Denies weakness Psychiatric Psychiatric: Denies anxiety, Denies behavioral changes, Denies confusion, Denies depression, Denies homicidal ideation and Denies suicidal ideation Endocrine Endocrine: Denies fatigue, Denies flushing and Denies palpitations Hematologic/Lymphatic Hematologic/Lymphatic: Denies easy bruising Allergic/Immunologic Allergic/Immunologic: Denies urticaria, Denies throat swelling and Denies wheezing Patient History <Arthur Hills PA-C - Last Filed: 01/01/22 15:45> Medical History Chronic cough Hyperlipidemia Pulmonary nodule SVT (supraventricular tachycardia) Thyroid nodule Social History household members: spouse Smoking Status: Never smoker alcohol intake: current Smoking Status: Never smoker alcohol intake frequency: a few times a week Substance Use Type: does not use Exam <Arthur Hills PA-C - Last Filed: 01/01/22 15:45> Initial Vital Signs Initial Vital Signs: Vital Signs Temperature 97.7 F 01/01/22 11:30 Pulse Rate 78 01/01/22 11:30 Respiratory Rate 18 01/01/22 11:30 Blood Pressure 129/76 01/01/22 11:30 Pulse Oximetry 98 01/01/22 11:30 Const General: cooperative, healthy appearing and comfortable Nutritional Appearance: average body habitus Orientation: Orientation [facility] Head: normal to inspection and normocephalic Ears: hearing grossly normal bilaterally and external ears normal Nose: external nose normal and nares normal Face and sinus: normal facial exam Mouth: oral mucosae normal Eyes Pupils: PERRL Resp Effort & Inspection: normal respiratory effort and able to speak in complete sentences Auscultation: clear to auscultation bilaterally Percussion: percussion normal Cardio Palpation: normal PMI Rate: regular rate Rhythm: regular rhythm Heart Sounds: S1 normal and S2 normal GI Inspection: distended Palpation: soft Percussion: tympanic to percussion Auscultation: normal bowel sounds Course <Arthur Hills PA-C - Last Filed: 01/01/22 15:45> Orders Ordered: ED Orders 01/01/22 11:55 Complete Blood Count AUTO DIFF Stat Comprehensive Metabolic Panel Stat Lipase Stat 01/01/22 12:37 CT abdomen pelvis wo con Stat 01/01/22 13:37 Urine Microscopic Stat Discontinued Medications Acetaminophen (Acetaminophen 325 Mg Tablet) 650 mg PO NOW ONE Stop: 01/01/22 13:01 Last Admin: 01/01/22 13:14 Dose: 650 mg Documented by: NANCIE Dicyclomine HCl (Dicyclomine 10 Mg Capsule) 20 mg PO NOW ONE Stop: 01/01/22 14:27 Last Admin: 01/01/22 14:33 Dose: 20 mg Documented by: NANCIE Diphenhydramine HCl (Diphenhydramine 50 Mg/Ml Vial) 50 mg IV NOW ONE Stop: 01/01/22 13:38 Last Admin: 01/01/22 14:40 Dose: Not Given Documented by: NANCIE Sodium Chloride (Normal Saline 0.9%) 1,000 mls @ 1,000 mls/hr IV BOLUS ONE Stop: 01/01/22 13:18 Last Infusion: 01/01/22 14:42 Dose: 0 mls/hr Documented by: Admin: 01/01/22 13:01 Dose: 1,000 mls/hr Documented by: ROGER Ketorolac Tromethamine (Ketorolac 30 Mg/Ml Vial) 30 mg IV NOW ONE Stop: 01/01/22 14:27 Last Admin: 01/01/22 14:33 Dose: 30 mg Documented by: NANCIE Metoclopramide HCl (Metoclopramide 10 Mg/2 Ml Inj) 10 mg IV NOW ONE Stop: 01/01/22 13:33 Last Admin: 01/01/22 13:46 Dose: 10 mg Documented by: NANCIE Ondansetron HCl (Ondansetron 4 Mg/2 Ml Inj) 4 mg IV NOW ONE Stop: 01/01/22 11:37 Last Admin: 01/01/22 13:01 Dose: 4 mg Documented by: ROGER Vital Signs Vital signs: Vital Signs - 8 hr 01/01/22 11:30 01/01/22 13:56 01/01/22 14:42 Temperature 97.7 F Pulse Rate 78 80 67 Respiratory Rate 18 16 20 Blood Pressure 129/76 148/74 H 161/74 H Pulse Oximetry 98 99 99 01/01/22 15:50 Temperature Pulse Rate 57 L Respiratory Rate Blood Pressure 152/71 H Pulse Oximetry 100 MDM - Abdominal Pain <Arthur Hills PA-C - Last Filed: 01/01/22 15:45> Differential Diagnosis Differential diagnosis: Likely abdominal pain Lab Data Result diagrams: 01/01/22 11:55 01/01/22 11:55 Labs: Lab Results 01/01/22 01/01/22 01/01/22 Range/Units 11:55 11:55 13:37 WBC 7.3 (4.5-11.0) X10^3/uL RBC 4.28 (4.0-5.2) X10^6/uL Hgb 13.5 (12.0-16.0) g/dL Hct 39.9 (36-46) % MCV 93.3 (80-100) fL MCH 31.4 (26-34) PG MCHC 33.7 (30-36) % RDW 12.8 (11.6-14.8) % Plt Count 224 (150-400) X10^3/uL Neut % (Auto) Not Reportable Lymph % (Auto) Not Reportable [place] % (Auto) Not Reportable Eos % (Auto) Not Reportable Baso % (Auto) Not Reportable Lymph # (Auto) Not Reportable [place] # (Auto) Not Reportable Baso # (Auto) Not Reportable Total Counted 100 Seg Neutrophils % 77.0 H (38-70) % Lymphocytes % (Manual) 17.0 L (25-45) % Monocytes % (Manual) 3.0 (2-11) % Eosinophils % (Manual) 3.0 (2-4) % Neutrophils # (Manual) 5621 (8429-2234) /uL RBC Morphology Normal morphology Sodium 137 (137-145) mmol/L Potassium 3.8 (3.4-5.1) mmol/L Chloride 100 (98-107) mmol/L Carbon Dioxide 30 (22-32) mmol/L BUN 14 (7-17) mg/dL Creatinine 0.81 (0.52-1.04) mg/dL Estimated GFR > 60.0 (>60) mL/min BUN/Creatinine Ratio 17.3 (6-22) Glucose 110 (80-110) mg/dL Calcium 9.6 (8.4-10.2) mg/dL Total Bilirubin 0.5 (0.2-1.3) mg/dL AST 43 H (14-36) IU/L ALT 36 H (<35) IU/L Alkaline Phosphatase 80 (38-126) U/L Total Protein 7.0 (6.3-8.2) g/dL Albumin 4.0 (3.5-5.0) g/dL Globulin 3.0 (1.7-4.1) g/dL Albumin/Globulin Ratio 1.3 (1.0-2.8) Lipase 36 (23-300) U/L Urine RBC 1-5/hpf (0-5/HPF) Urine WBC None seen (0-5/HPF) Ur Squamous Epith Cells 0-1 /hpf (0-5/HPF) Urine Bacteria None seen (None) Ur Culture Indicated? Cult not indicated Point of care testing: Urine Dip Bedside Urine Glucose Negative Bedside Urine Bilirubin - Negative Bedside Urine Ketone + 15 Urine Specific [place] 1.015 Bedside Urine Occult Blood + Bedside Urine pH 7.0 Bedside Urine Protein - Negative Bedside Urine Urobilinogen - Negative Bedside Urine Nitrite - Negative Bedside Urine Leukocytes - Negative Esterase Imaging Data CT scan - abdomen/pelvis: Radiologist's Impression: PROCEDURE:? CT ABDOMEN PELVIS WO CON ? INDICATIONS:? abdominal pain hx of diverticulitis ? TECHNIQUE:? Axial sections were acquired from the lung bases to the pubic symphysis.? Coronal and sagittal reformats were performed.? For radiation dose reduction, the following was used: ?automated exposure control, adjustment of mA and/or kV according to patient size.? ? COMPARISON:? None. ? FINDINGS:? Image quality:? Excellent.? ? Lung bases:? Minor left lateral lung base atelectatic change. Heart:? Pectus excavatum deformity and slight cardiomegaly. ? ABDOMEN: Liver:? Liver contour is normal. Gallbladder:? No pericholecystic fluid or inflammation.? Dependently layering material in the fundus. Biliary ducts:? Nondilated. Pancreas:? Normal. Spleen:? Normal size. Adrenal Glands:? No nodules. Kidneys and Ureters:? Normal enhancement.? No hydronephrosis or hydroureter.? No calcifications. ? Stomach and Bowel:? Mild gaseous distention of the stomach, small bowel loops, and colon. ?There is a normal, air-filled appendix.? Small air-fluid levels are seen in the proximal colon.? There is mild wall thickening of the distal colon beginning at the splenic flexure.? There are several diverticula in the distal descending colon with very minor surrounding inflammation and fat stranding.? Distally, the sigmoid colon and rectum contains a moderate amount of solid stool.? No extraluminal gas or focal fluid collections.. Peritoneum:? Very trace right perirectal free fluid.? No free air. ? Ventral Wall: Tiny fat containing umbilical hernia.? Abdominal Nodes:? No enlarged retroperitoneal or mesenteric lymph nodes.? Vessels:? Aorta and inferior vena cava are normal in size.? ? PELVIS: Bladder:? Normal wall thickness. Pelvic Organs:? Normal uterus.? Vaginal ring in place. Pelvic Nodes:? No adenopathy. Miscellaneous: No inguinal hernias are seen. ? ? ? Bones:? Mild degenerative changes in the right hip.? Otherwise normal osseous structures. ? IMPRESSION: ? 1. Mild wall thickening and subtle inflammation surrounding the entire descending colon where scattered diverticula are present.? This may represent a colitis of infectious, reactive etiologies, or less likely acute diverticulitis. ? 2. Moderate amount of distal colonic solid stool may result in a partial obstruction and gaseous distension of stomach and bowel loops.? ? ? Dictated by: Radha Harvey M.D. on 01/01/2022 at 12:47 ? ? Approved by: Radha Harvey M.D. on 01/01/2022 at 12:56?? [facility] Narrative Medical decision making narrative: Patient was seen in the ED for her continued nausea and abdominal pain. Her CT scan shows evidence of colitis that could be infectious etiology. Based on her symptoms of diverticulitis I think it is feasible to start her on some antibiotics to prevent any further infectious process. She was given Bentyl here in the ED which improved her abdominal pain. Her nausea was controlled with Reglan and Ativan. I spoke with patient about treatment options she had significant improvement with her IV fluid bolus. She feels confident that she can tolerate p.o. fluids and would prefer to be discharged home. Advised her I would prescribe Bentyl for pain I will prescribe Cipro for her colitis and Phenergan as needed from continued nausea. If patient has no improvement in 2-3 days she should follow-up with her PCP or return to the ED as needed patient will be discharged home. Discharge Plan Departure Patient Disposition: Home Clinical Impression: Abdominal pain, Colitis presumed infectious, Nausea Instructions: DI for Abdominal Pain-Adult, DI for Nausea -- Adult, DI for Colitis Activity Restrictions/Additional Instructions: You were seen in the ED for abdominal pain and nausea. I believe your abdominal pain is result of your colitis discovered on her CT scan. An infectious etiology is a possibility and as result I would recommend antibiotic. I sent over a prescription for Phenergan that is for your continued nausea. I also sent over a prescription for Bentyl for your abdominal discomfort. If you are not able to tolerate fluids over the next couple of days he may need to return to the ED or follow-up with your PCP. Prescriptions: New dicyclomine 20 mg tablet 20 mg PO QID Qty: 30 0RF ciprofloxacin HCl [Cipro] 500 mg tablet 500 mg PO BID Qty: 10 0RF promethazine 25 mg tablet 25 mg PO Q6H PRN (Reason: nausea and vomiting) Qty: 14 0RF No Action diltiazem HCl [Cartia XT] 120 mg capsule,extended release 24hr 120 mg PO DAILY 0RF atorvastatin [Lipitor] 10 mg tablet 10 mg PO DAILY 0RF aspirin [Adult Aspirin Regimen] 81 mg tablet,delayed release (DR/EC) 81 mg PO DAILY 0RF ascorbic acid (vitamin C) 1,000 mg tablet 500 mg PO BID 0RF cholecalciferol (vitamin D3) 125 mcg (5,000 unit) capsule 125 mcg PO DAILY 0RF magnesium oxide 400 mg magnesium capsule 400 mg PO DAILY 0RF cyanocobalamin (vitamin B-12) [Vitamin B-12] 1,000 mcg tablet extended release 1,000 mcg PO DAILY 0RF sulfamethoxazole-trimethoprim 800-160 mg tablet 1 tab PO BID Qty: 10 0RF phenazopyridine [Pyridium] 200 mg tablet 200 mg PO TID 0 Days Qty: 6 0RF montelukast [Singulair] 10 mg tablet 10 mg PO BEDTIME Qty: 90 3RF Estring 2 mg (7.5 mcg /24 hour) ring See Rx Instructions .ROUTE .COMPLEX Qty: 1 3RF Dose Instruction: INSERT 1 RING INTO THE UPPER THIRD OF VAGINA, KEEP IN PLACE FOR 3 MONTHS, THEN REPLACE (SCHEDULE AN APPOINTMENT FOR REFILLS) Rx Instructions: INSERT 1 RING INTO THE UPPER THIRD OF VAGINA, KEEP IN PLACE FOR 3 MONTHS, THEN REPLACE (SCHEDULE AN APPOINTMENT FOR REFILLS) Referrals: Bridget Barnhart MD [Primary Care Provider] -
--- NOTE | 2022-01-01 12:37 | DI.CT.S_ITS ---
PROCEDURE: CT ABDOMEN PELVIS WO CON INDICATIONS: abdominal pain hx of diverticulitis TECHNIQUE: Axial sections were acquired from the lung bases to the pubic symphysis. Coronal and sagittal reformats were performed. For radiation dose reduction, the following was used: automated exposure control, adjustment of mA and/or kV according to patient size. COMPARISON: None. FINDINGS: Image quality: Excellent. Lung bases: Minor left lateral lung base atelectatic change. Heart: Pectus excavatum deformity and slight cardiomegaly. ABDOMEN: Liver: Liver contour is normal. Gallbladder: No pericholecystic fluid or inflammation. Dependently layering material in the fundus. Biliary ducts: Nondilated. Pancreas: Normal. Spleen: Normal size. Adrenal Glands: No nodules. Kidneys and Ureters: Normal enhancement. No hydronephrosis or hydroureter. No calcifications. Stomach and Bowel: Mild gaseous distention of the stomach, small bowel loops, and colon. There is a normal, air-filled appendix. Small air-fluid levels are seen in the proximal colon. There is mild wall thickening of the distal colon beginning at the splenic flexure. There are several diverticula in the distal descending colon with very minor surrounding inflammation and fat stranding. Distally, the sigmoid colon and rectum contains a moderate amount of solid stool. No extraluminal gas or focal fluid collections.. Peritoneum: Very trace right perirectal free fluid. No free air. Ventral Wall: Tiny fat containing umbilical hernia. Abdominal Nodes: No enlarged retroperitoneal or mesenteric lymph nodes. Vessels: Aorta and inferior vena cava are normal in size. PELVIS: Bladder: Normal wall thickness. Pelvic Organs: Normal uterus. Vaginal ring in place. Pelvic Nodes: No adenopathy. Miscellaneous: No inguinal hernias are seen. Bones: Mild degenerative changes in the right hip. Otherwise normal osseous structures. IMPRESSION: 1. Mild wall thickening and subtle inflammation surrounding the entire descending colon where scattered diverticula are present. This may represent a colitis of infectious, reactive etiologies, or less likely acute diverticulitis. 2. Moderate amount of distal colonic solid stool may result in a partial obstruction and gaseous distension of stomach and bowel loops. Dictated by: Radha Harvey M.D. on 01/01/2022 at 12:47 Approved by: Radha Harvey M.D. on 01/01/2022 at 12:56
[2022-01-01 12:38] LABS: Hematocrit 39.9 % (36-46); Hemoglobin 13.5 g/dL (12.0-16.0); Mean Corpuscular HGB Conc 33.7 % (30-36); Mean Corpuscular Hemoglobin 31.4 PG (26-34); Mean Corpuscular Volume 93.3 fL (80-100); Platelet Count 224 X10^3/uL (150-400); Red Blood Cell Count 4.28 X10^6/uL (4.0-5.2); Red Cell Distribution Width 12.8 % (11.6-14.8); White Blood Cell Count 7.3 X10^3/uL (4.5-11.0)
[2022-01-01 12:39] LABS: Add Manual Diff / Slide Review YES
[2022-01-01 12:55] LABS: Alanine Aminotransferase 36 IU/L (<35); Albumin Globulin Ratio 1.3 (1.0-2.8); Alkaline Phosphatase 80 U/L (38-126); Aspartate Aminotransferase 43 IU/L (14-36); BUN Creatinine Ratio 17.3 (6-22); Bilirubin Total 0.5 mg/dL (0.2-1.3); Blood Urea Nitrogen 14 mg/dL (7-17); Calcium 9.6 mg/dL (8.4-10.2); Carbon Dioxide 30 mmol/L (22-32); Chloride 100 mmol/L (98-107); Estimated Glomerular Filt Rate > 60.0 mL/min (>60); Glucose 110 mg/dL (80-110); HEMOLYSIS < 15 (0-50); Lipase 36 U/L (23-300); Potassium 3.8 mmol/L (3.4-5.1); Sodium 137 mmol/L (137-145)
[2022-01-01] MEDS: SODIUM CHLORIDE 0.9% 1,000 ML 1000 ML IV (13:01)
[2022-01-01] MEDS: ONDANSETRON 4 MG/2 ML INJ IV (13:01)
[2022-01-01 13:03] LABS: Neutrophils Absolute Manual 5621 /uL (3000-5900); Total Cells Counted 100
[2022-01-01 13:04] LABS: RBC Morphology Normal Morphology
[2022-01-01] MEDS: ACETAMINOPHEN 325 MG TABLET 650 MG PO (13:14)
--- NOTE | 2022-01-01 13:30 | PC.NURSE ---
Pt reports abdomen pain to [facility], declined offer for pain medications r/t fear of side effects, reports she is sensitive to medications.
[2022-01-01] MEDS: METOCLOPRAMIDE 10 MG/2 ML INJ IV (13:46)
[2022-01-01 13:56] VITALS: BP 148/74; PULSE 80; RESP 16; O2SAT 99
[2022-01-01 14:07] LABS: Bacteria Urine None Seen; Culture Indicated Urine Cult Not Indicated; RBC Urine 1-5/HPF (0-5/HPF); Squamous Epithelial Cell Urine 0-1 /HPF (0-5/HPF); WBC Urine None Seen (0-5/HPF)
--- NOTE | 2022-01-01 14:23 | PC.NURSE ---
Pt continues to report nausea, denies relief from medications.
[2022-01-01] MEDS: KETOROLAC 30 MG/ML VIAL IV (14:33)
[2022-01-01] MEDS: DICYCLOMINE 10 MG CAPSULE 20 MG PO (14:33)
[2022-01-01 14:42] VITALS: BP 161/74; PULSE 67; RESP 20; O2SAT 99
[2022-01-01 15:50] VITALS: BP 152/71; PULSE 57; O2SAT 100
== END 2022-01-01 15:51 | disposition home or self-care (01) ==
PROVIDERS: Emergency Medicine; Emergency Provider Physician Assistant; PCP Family Medicine; Referring Provider Orthopaedic Surgery
DX: R10.9 Unspecified abdominal pain (principal); K52.9 Noninfective gastroenteritis and colitis, unspecified
CPT/HCPCS: 36415; 74176; 80053; 81003; 81015; 83690; 85007; 85025; 96361; 96374; 96375; 99284; J1885; J2405; J2765

== ENCOUNTER 2022-01-02 20:47 | Emergency (ER) | payer MEDICARE, OTHER, SELFPAY ==
[2022-01-02 20:57] VITALS: BP 116/81; PULSE 83; RESP 17; TEMP 36.8; O2SAT 97; BMI 24.8
--- NOTE | 2022-01-02 21:06 | ED_ITS ---
HPI - Nausea/Vomiting/Diarrhea General Chief complaint: Nausea/Vomiting/Diarrhea Stated complaint: ABD.PAIN/VOMITING Time Seen by Provider: 01/02/22 21:06 Source: patient Mode of arrival: Ambulatory History of Present Illness HPI Narrative: Patient is a 71-year-old female with history of hypertension hyperlipidemia presenting with constant nausea. She had rotator cuff surgery on December 24 she was given Percocet for pain. She has not taken Percocet for about 1 week because it was making her nauseous. She was seen and evaluated here yesterday she had blood work and a CT, CT showed mild colitis. She was started on Cipro. She has been unable to eat anything more than applesauce or some breath. She took Cipro on an empty stomach making her feel instantly nauseous. She was given Phenergan in addition to Zofran. She has not actually been vomiting. She has been taking MiraLax in order to have a bowel movement. She has had some chills. No significant abdominal pain she denies any chest pain shortness of breath painful or frequent urination. Related Data Home Medications Medication Instructions Recorded Confirmed diltiazem HCl 120 mg 120 mg PO DAILY 01/14/19 09/08/21 capsule,extended release 24 hr (Cartia XT) ascorbic acid (vitamin C) 1,000 mg 500 mg PO BID 05/12/20 09/08/21 tablet aspirin 81 mg tablet,delayed 81 mg PO DAILY 05/12/20 01/02/22 release (Adult Aspirin Regimen) atorvastatin 10 mg tablet (Lipitor) 10 mg PO DAILY 05/12/20 01/02/22 cholecalciferol (vitamin D3) 125 125 mcg PO DAILY 05/12/20 09/08/21 mcg (5,000 unit) capsule cyanocobalamin (vitamin B-12) 1,000 mcg PO DAILY 05/12/20 09/08/21 1,000 mcg tablet,extended release (Vitamin B-12 ER) magnesium oxide 400 mg PO DAILY 05/12/20 09/08/21 Previous Rx's Medication Instructions Recorded estradiol (Estring) See Rx Instructions .ROUTE 05/12/21 .COMPLEX #1 ea montelukast 10 mg tablet 10 mg PO BEDTIME #90 tab 05/29/21 (Singulair) ciprofloxacin HCl 500 mg tablet 500 mg PO BID #10 tab 01/01/22 (Cipro) dicyclomine 20 mg tablet 20 mg PO QID #30 tab 01/01/22 promethazine 25 mg tablet 25 mg PO Q6H PRN #14 tab 01/01/22 Allergies Allergy/AdvReac Type Severity Reaction Status Date / Time No Known Drug Allergies Allergy Verified 01/02/22 21:02 Review of Systems Review of Systems Narrative: GENERAL: Denies chills, fatigue, malaise, fever, sweats, travel HEENT: Denies sinus pain, ear pain, sore throat, difficulty swallowing, neck pain RESPIRATORY: Denies dyspnea, cough, wheezing, hemoptysis, sputum. CARDIOVASCULAR: Denies chest pain, palpitations, orthopnea, edema GASTROINTESTINAL: See HPI : Denies dysuria, frequency, incontinence, hematuria, urinary retention, flank pain. MUSCULOSKELETAL: Denies weakness, joint pain, or bony pain SKIN: No rash, no erythema, no pruritus NEUROLOGIC: Denies weakness, dizziness, headache, numbness, change in speech, confusion PSYCHIATRIC: No concerning psychosocial issues. 12 point review of systems is negative except for those stated above and HPI Patient History Medical History Chronic cough Hyperlipidemia Pulmonary nodule SVT (supraventricular tachycardia) Thyroid nodule Social History household members: spouse Smoking Status: Never smoker alcohol intake: current Smoking Status: Never smoker alcohol intake frequency: a few times a month Substance Use Type: does not use Exam Initial Vital Signs Initial Vital Signs: Vital Signs Temperature 98.3 F 01/02/22 20:57 Pulse Rate 83 01/02/22 20:57 Respiratory Rate 17 01/02/22 20:57 Blood Pressure 116/81 01/02/22 20:57 Pulse Oximetry 97 01/02/22 20:57 GENERAL: Alert 71-year-old female appears to not feel. in no acute distress. HEENT: Head atraumatic,EOMI, pupils reactive, face symmetric, moist mucous membranes CARDIOVASCULAR: Regular rate and rhythm without murmurs, rubs or gallops. RESPIRATORY: Breath sounds equal bilaterally, no wheezes rales or rhonchi. ABDOMEN: Soft, nontender. Normoactive bowel sounds all 4 quadrants. No guarding or rebound. EXTREMITIES: Normal range of motion, no clubbing or edema. Neurovascularly intact Right arm in sling NEUROLOGICAL: Alert and oriented x4.Normal gait and speech. SKIN: Warm, dry, no laceration, no petechiae, no rashes or lesions. Course Orders Ordered: ED Orders 01/02/22 21:16 XR chest 1V Stat 01/02/22 21:30 Complete Blood Count AUTO DIFF Stat Comprehensive Metabolic Panel Stat Lipase Stat Troponin & CK Cardiac Panel Stat 01/02/22 21:47 EKG-12 Lead Stat 01/02/22 23:01 Urine Microscopic Stat 01/02/22 23:11 CT abdomen pelvis w con Stat Discontinued Medications Sodium Chloride (Normal Saline 0.9%) 1,000 mls @ 1,000 mls/hr IV BOLUS ONE Stop: 01/02/22 22:17 Last Infusion: 01/02/22 22:45 Dose: 0 mls/hr Documented by: Admin: 01/02/22 21:36 Dose: 1,000 mls/hr Documented by: JOSH Ondansetron HCl (Ondansetron 4 Mg/2 Ml Inj) 4 mg IV NOW ONE Stop: 01/02/22 21:16 Last Admin: 01/02/22 21:37 Dose: 4 mg Documented by: JOSH Pantoprazole Sodium (Pantoprazole 40 Mg Vial) 40 mg IV NOW ONE Stop: 01/02/22 21:16 Last Admin: 01/02/22 21:37 Dose: 40 mg Documented by: JOSH Vital Signs Vital signs: Vital Signs - 8 hr 01/02/22 20:57 01/02/22 22:01 01/02/22 22:30 Temperature 98.3 F Pulse Rate 83 59 L 58 L Respiratory Rate 17 19 18 Blood Pressure 116/81 142/76 H 149/72 H Pulse Oximetry 97 100 99 01/02/22 22:49 01/02/22 23:00 01/02/22 23:38 Temperature Pulse Rate 62 62 64 Respiratory Rate 16 22 19 Blood Pressure 142/64 H 135/63 Pulse Oximetry 100 99 96 01/03/22 00:14 01/03/22 00:35 Temperature Pulse Rate 63 Respiratory Rate Blood Pressure 131/71 Pulse Oximetry 89 L MDM - Nausea/Vomiting/Diarrhea Lab Data Result diagrams: 01/02/22 21:30 01/02/22 21:30 Labs: Lab Results 01/02/22 01/02/22 01/02/22 Range/Units 21:30 21:30 23:01 WBC 8.7 (4.5-11.0) X10^3/uL RBC 4.34 (4.0-5.2) X10^6/uL Hgb 13.6 (12.0-16.0) g/dL Hct 40.4 (36-46) % MCV 93.0 (80-100) fL MCH 31.3 (26-34) PG MCHC 33.7 (30-36) % RDW 13.0 (11.6-14.8) % Plt Count 253 (150-400) X10^3/uL Neut % (Auto) 74.0 (50-75) % Lymph % (Auto) 16.1 L (25-40) % Geary % (Auto) 7.0 (3-14) % Eos % (Auto) 2.0 (2-4) % Baso % (Auto) 0.9 (0-2) % Neut # (Auto) 6400 (4045-9768) /uL Lymph # (Auto) 1400 (0865-4045) /uL Geary # (Auto) 600 (0-900) /uL Eos # (Auto) 200 (0-450) /uL Baso # (Auto) 100 (0-100) /uL Sodium 136 L (137-145) mmol/L Potassium 3.6 (3.4-5.1) mmol/L Chloride 102 (98-107) mmol/L Carbon Dioxide 29 (22-32) mmol/L BUN 9 (7-17) mg/dL Creatinine 0.79 (0.52-1.04) mg/dL Estimated GFR > 60.0 (>60) mL/min BUN/Creatinine Ratio 11.4 (6-22) Glucose 115 H (80-110) mg/dL Calcium 9.7 (8.4-10.2) mg/dL Total Bilirubin 0.5 (0.2-1.3) mg/dL AST 32 (14-36) IU/L ALT 31 (<35) IU/L Alkaline Phosphatase 76 (38-126) U/L Total Creatine Kinase 43 (30-135) U/L CK-MB (CK-2) TNP CK-MB (CK-2) Rel Index TNP Troponin I < 0.012 (0.01-0.034) ng/mL Total Protein 7.1 (6.3-8.2) g/dL Albumin 4.0 (3.5-5.0) g/dL Globulin 3.1 (1.7-4.1) g/dL Albumin/Globulin Ratio 1.3 (1.0-2.8) Lipase 74 D (23-300) U/L Urine RBC 0-1/hpf (0-5/HPF) Urine WBC None seen (0-5/HPF) Urine Bacteria None seen (None) Ur Culture Indicated? Cult not indicated Urine Dip Bedside Urine Glucose Negative Bedside Urine Bilirubin - Negative Bedside Urine Ketone - Negative Urine Specific [place] 1.010 Bedside Urine Occult Blood +/- Bedside Urine pH 6.5 Bedside Urine Protein - Negative Bedside Urine Urobilinogen - Negative Bedside Urine Nitrite - Negative Bedside Urine Leukocytes - Negative Esterase Imaging Data Chest x-ray: Radiologist's Impression: PROCEDURE:? XR CHEST 1V ? INDICATIONS:? nausea ? TECHNIQUE:? One view of the chest was acquired.? ? COMPARISON:? [facility], , XR CHEST 2V, 02/08/2019, 15:10. ? FINDINGS:? ? Surgical changes and devices:? None.? ? Lungs and pleura:? Lungs are clear.? No pleural effusions or pneumothorax.? ? Mediastinum:? Mediastinal contours appear normal.? Heart size is normal.? ? Bones and chest wall:? No suspicious bony lesions.? Overlying soft tissues appear unremarkable.? ? IMPRESSION:? Normal for age. ? ? Dictated by: Miles Kurtz M.D. on 01/02/2022 at 21:39 ? ? CT scan - abdomen/pelvis: Radiologist's Impression: PROCEDURE:? CT ABDOMEN PELVIS W CON ? INDICATIONS:? constant nausea. pain epigastric ? TECHNIQUE:? After the administration of intravenous contrast, axial sections acquired from the lung bases to the pubic symphysis.? Coronal and sagittal reformats were performed.? For radiation dose reduction, the following was used:? automated exposure control, adjustment of mA and/or kV according to patient size.? ? COMPARISON:? None. ? FINDINGS:? Image quality:? Excellent.? ? Lung bases:? Unremarkable. Heart:? No significant findings. ? ABDOMEN: Liver:? Unremarkable.? ? Gallbladder:? Unremarkable.? ? Biliary ducts:? Unremarkable.? ? Pancreas:? Unremarkable.? ? Spleen:? Unremarkable.? ? Adrenal Glands:? Unremarkable.? ? Kidneys and Ureters:? Unremarkable.? ? ? Stomach and Bowel:? Stomach, small bowel loops, and colon are unremarkable.? Peritoneum:? No abnormal intraperitoneal fluid.? No free air.? ? Ventral Wall: ? No hernias.? Abdominal Nodes:? No retroperitoneal or mesenteric adenopathy by size criteria.? Vessels:? Aorta and inferior vena cava are normal in size.? ? PELVIS: Pelvic Organs:? Unremarkable.? ? Bladder:? Unremarkable.? ? Pelvic Nodes: No enlarged lymph nodes.? Miscellaneous: No hernias are seen. ? ? Pessary at the cervix. ? Bones:? Unremarkable.? IMPRESSION:? Source of reported nausea and epigastric abdominal pain is not found.? There is no sign of active inflammation or intestinal obstruction or perforation. ? ? Dictated by: Miles Kutrz M.D. on 01/03/2022 at 0:11 ? ? ECG Data Interpretation: Normal sinus rhythm rate 68 ME interval 172 QRS [address] changes MDM Narrative Medical decision making narrative: Patient continues to feel extremely nauseous she is not actually vomiting. CT yesterday was done without contrast today is done with contrast there was no abnormality found. She really does not have any abdominal pain blood work is overall reassuring. She is literally keeps belching is. At this time she has no fever or leukocytosis Cipro made her very nauseous I see no need to continue with. Also recommend stopping Bentyl. He is tolerating some water she is overall feeling better. She has Zofran and Phenergan at home. She is only taking Tylenol and ibuprofen as needed for pain which does seem to help. He has been taking MiraLax to have a bowel movement. At this time no need for admission. Recommend outpatient follow-up. Discharge Plan Departure Patient Disposition: Home Clinical Impression: Nausea Instructions: DI for Nausea -- Adult Activity Restrictions/Additional Instructions: *You have been diagnosed with nausea *What to do: At this time I do not know what is causing your nausea. Try to stay hide Gatorade or Gatorade like substance, broth, Jell-O applesauce, etc *Continue to take medications as directed STOP, Cipro and dicyclomine Resume all home medications Take nausea medications as directed *Follow up with your primary care provider in 2-3 days or call [phone] *Return to ER if you should have persistent vomiting, increasing pain, fever greater than 100.4 or any new, worsening or concerning symptoms Prescriptions: No Action diltiazem HCl [Cartia XT] 120 mg capsule,extended release 24hr 120 mg PO DAILY 0RF atorvastatin [Lipitor] 10 mg tablet 10 mg PO DAILY 0RF aspirin [Adult Aspirin Regimen] 81 mg tablet,delayed release (DR/EC) 81 mg PO DAILY 0RF ascorbic acid (vitamin C) 1,000 mg tablet 500 mg PO BID 0RF cholecalciferol (vitamin D3) 125 mcg (5,000 unit) capsule 125 mcg PO DAILY 0RF magnesium oxide 400 mg magnesium capsule 400 mg PO DAILY 0RF cyanocobalamin (vitamin B-12) [Vitamin B-12] 1,000 mcg tablet extended release 1,000 mcg PO DAILY 0RF montelukast [Singulair] 10 mg tablet 10 mg PO BEDTIME Qty: 90 3RF Estring 2 mg (7.5 mcg /24 hour) ring See Rx Instructions .ROUTE .COMPLEX Qty: 1 3RF Dose Instruction: INSERT 1 RING INTO THE UPPER THIRD OF VAGINA, KEEP IN PLACE FOR 3 MONTHS, THEN REPLACE (SCHEDULE AN APPOINTMENT FOR REFILLS) Rx Instructions: INSERT 1 RING INTO THE UPPER THIRD OF VAGINA, KEEP IN PLACE FOR 3 MONTHS, THEN REPLACE (SCHEDULE AN APPOINTMENT FOR REFILLS) dicyclomine 20 mg tablet 20 mg PO QID Qty: 30 0RF ciprofloxacin HCl [Cipro] 500 mg tablet 500 mg PO BID Qty: 10 0RF promethazine 25 mg tablet 25 mg PO Q6H PRN (Reason: nausea and vomiting) Qty: 14 0RF Referrals: Bridget Barnhart MD [Primary Care Provider] -
--- NOTE | 2022-01-02 21:16 | DI.RAD.S_ITS ---
PROCEDURE: XR CHEST 1V INDICATIONS: nausea TECHNIQUE: One view of the chest was acquired. COMPARISON: [facility], CR, XR CHEST 2V, 02/08/2019, 15:10. FINDINGS: Surgical changes and devices: None. Lungs and pleura: Lungs are clear. No pleural effusions or pneumothorax. Mediastinum: Mediastinal contours appear normal. Heart size is normal. Bones and chest wall: No suspicious bony lesions. Overlying soft tissues appear unremarkable. IMPRESSION: Normal for age. Dictated by: Miles Kurtz M.D. on 01/02/2022 at 21:39 Approved by: Miles Kurtz M.D. on 01/02/2022 at 21:39
[2022-01-02] MEDS: SODIUM CHLORIDE 0.9% 1,000 ML 1000 ML IV (21:36)
[2022-01-02] MEDS: PANTOPRAZOLE 40 MG VIAL IV (21:37)
[2022-01-02] MEDS: ONDANSETRON 4 MG/2 ML INJ IV (21:37)
[2022-01-02 21:41] LABS: Add Manual Diff / Slide Review NO; Basophils Absolute Auto 100 /uL (0-100); Basophils Percent Auto 0.9 % (0-2); Eosinophils Absolute Auto 200 /uL (0-450); Hematocrit 40.4 % (36-46); Hemoglobin 13.6 g/dL (12.0-16.0); Lymphocytes Absolute Auto 1400 /uL (1100-4500); Lymphocytes Percent Auto 16.1 % (25-40); Mean Corpuscular HGB Conc 33.7 % (30-36); Mean Corpuscular Hemoglobin 31.3 PG (26-34); Monocytes Absolute Auto 600 /uL (0-900); Neutrophils Absolute Auto 6400 /uL (1500-7000); Platelet Count 253 X10^3/uL (150-400); Red Blood Cell Count 4.34 X10^6/uL (4.0-5.2); White Blood Cell Count 8.7 X10^3/uL (4.5-11.0)
[2022-01-02 22:01] VITALS: BP 142/76; PULSE 59; RESP 19; O2SAT 100
[2022-01-02 22:05] LABS: Alanine Aminotransferase 31 IU/L (<35); Albumin Globulin Ratio 1.3 (1.0-2.8); Alkaline Phosphatase 76 U/L (38-126); Aspartate Aminotransferase 32 IU/L (14-36); BUN Creatinine Ratio 11.4 (6-22); Bilirubin Total 0.5 mg/dL (0.2-1.3); Blood Urea Nitrogen 9 mg/dL (7-17); Calcium 9.7 mg/dL (8.4-10.2); Carbon Dioxide 29 mmol/L (22-32); Chloride 102 mmol/L (98-107); Creatine Kinase 43 U/L (30-135); Estimated Glomerular Filt Rate > 60.0 mL/min (>60); Globulin 3.1 g/dL (1.7-4.1); Glucose 115 mg/dL (80-110); HEMOLYSIS < 15 (0-50); Lipase 74 U/L (23-300); Potassium 3.6 mmol/L (3.4-5.1); Sodium 136 mmol/L (137-145); Total Protein 7.1 g/dL (6.3-8.2)
[2022-01-02 22:15] LABS: Troponin I < 0.012 ng/mL (0.01-0.034)
[2022-01-02 22:30] VITALS: BP 149/72; PULSE 58; RESP 18; O2SAT 99
[2022-01-02 22:49] VITALS: BP 142/64; PULSE 62; RESP 16; O2SAT 100
[2022-01-02 23:00] VITALS: BP 135/63; PULSE 62; RESP 22; O2SAT 99
--- NOTE | 2022-01-02 23:11 | DI.CT.S_ITS ---
PROCEDURE: CT ABDOMEN PELVIS W CON INDICATIONS: constant nausea. pain epigastric TECHNIQUE: After the administration of intravenous contrast, axial sections acquired from the lung bases to the pubic symphysis. Coronal and sagittal reformats were performed. For radiation dose reduction, the following was used: automated exposure control, adjustment of mA and/or kV according to patient size. COMPARISON: None. FINDINGS: Image quality: Excellent. Lung bases: Unremarkable. Heart: No significant findings. ABDOMEN: Liver: Unremarkable. Gallbladder: Unremarkable. Biliary ducts: Unremarkable. Pancreas: Unremarkable. Spleen: Unremarkable. Adrenal Glands: Unremarkable. Kidneys and Ureters: Unremarkable. Stomach and Bowel: Stomach, small bowel loops, and colon are unremarkable. Peritoneum: No abnormal intraperitoneal fluid. No free air. Ventral Wall: No hernias. Abdominal Nodes: No retroperitoneal or mesenteric adenopathy by size criteria. Vessels: Aorta and inferior vena cava are normal in size. PELVIS: Pelvic Organs: Unremarkable. Bladder: Unremarkable. Pelvic Nodes: No enlarged lymph nodes. Miscellaneous: No hernias are seen. Pessary at the cervix. Bones: Unremarkable. IMPRESSION: Source of reported nausea and epigastric abdominal pain is not found. There is no sign of active inflammation or intestinal obstruction or perforation. Dictated by: Miles Kurtz M.D. on 01/03/2022 at 0:11 Approved by: Miles Kurtz M.D. on 01/03/2022 at 0:13
[2022-01-02 23:21] LABS: Bacteria Urine None Seen; Culture Indicated Urine Cult Not Indicated; RBC Urine 0-1/HPF (0-5/HPF); WBC Urine None Seen (0-5/HPF)
[2022-01-02 23:38] VITALS: PULSE 64; RESP 19; O2SAT 96
[2022-01-03 00:14] VITALS: PULSE 63; O2SAT 89
[2022-01-03 00:35] VITALS: BP 131/71
== END 2022-01-03 00:36 | disposition home or self-care (01) ==
PROVIDERS: Emergency Provider Emergency Medicine; PCP Family Medicine
DX: R11.0 Nausea (principal); I10 Essential (primary) hypertension
CPT/HCPCS: 36415; 71045; 74177; 80053; 81003; 81015; 82550; 83690; 84484; 85025; 93005; 93010; 96361; 96374; 96375; 99284; C9113; J2405; Q9967

== ENCOUNTER → 2022-05-19 11:08 | Outpatient (CLI) | payer MEDICARE, OTHER, SELFPAY ==
[2022-05-19 13:21] LABS: Alanine Aminotransferase 17 IU/L (<35); Albumin 4.6 g/dL (3.5-5.0); Alkaline Phosphatase 81 U/L (38-126); Aspartate Aminotransferase 28 IU/L (14-36); BUN Creatinine Ratio 25.6 (6-22); Bilirubin Total 0.7 mg/dL (0.2-1.3); Blood Urea Nitrogen 21 mg/dL (7-17); Calcium 9.7 mg/dL (8.4-10.2); Carbon Dioxide 29 mmol/L (22-32); Chloride 103 mmol/L (98-107); Estimated Glomerular Filt Rate > 60 mL/min (>60); Globulin 2.3 g/dL (1.7-4.1); Glucose 95 mg/dL (80-110); HEMOLYSIS < 15 (0-50); Potassium 4.9 mmol/L (3.4-5.1); Sodium 137 mmol/L (137-145); Total Protein 6.9 g/dL (6.3-8.2)
== END ==
PROVIDERS: PCP Family Medicine; Referring Provider Specialist; Visit Provider Specialist
DX: E78.2 Mixed hyperlipidemia (principal)
CPT/HCPCS: 36415; 80053

== ENCOUNTER → 2022-09-06 09:26 | Outpatient (CLI) | payer MEDICARE, OTHER, SELFPAY ==
[2022-09-06 10:59] LABS: Cholesterol 185 mg/dL (140-199); HDL Cholesterol 74 mg/dL (40-60); LDL Cholesterol Calculated 95 mg/dL (<100); Triglycerides 78 mg/dL (35-150)
[2022-09-08 10:46] LABS: Cholesterol, Total 191 mg/dL (100-199); HDL-Cholesterol 86 mg/dL (>39); HDL-Particle (Total) 46.2 umol/L (>=30.5); Historical Reading Comment: (.); LDL Particle 932 nmol/L (<1000); LDL Size 21.1 nm (>20.5); LDL-Cholsterol 91 mg/dL (0-99); LP-IR Score 30 (<=45); Small LDL- Particle 335 nmol/L (<=527); Triglycerides 76 mg/dL (0-149)
== END ==
PROVIDERS: PCP Family Medicine; Referring Provider Specialist; Visit Provider Specialist
DX: E78.00 Pure hypercholesterolemia, unspecified (principal)
CPT/HCPCS: 36415; 80061; 83704

== ENCOUNTER → 2022-09-13 16:00 | Outpatient (CLI) | payer MEDICARE, OTHER, SELFPAY ==
--- NOTE | 2022-09-13 16:03 | DI.RAD.S_ITS ---
PROCEDURE: XR HIP W PEL IF DONE RT 2V INDICATIONS: right hip pain TECHNIQUE: AP pelvis with lateral view(s) of the right hip(s). COMPARISON: None. FINDINGS: Bones: No fractures or dislocations. Prominent subcortical cystic change in the right superior acetabulum. Mild symmetric femoroacetabular joint space loss and slight spurring bilaterally. Pelvic ring appears intact. No suspicious bony lesions. Soft tissues: The visualized bowel gas pattern is normal. No suspicious soft tissue calcifications. IMPRESSION: 1. 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 Dictated by: Radha Harvey M.D. on 09/13/2022 at 18:44 Approved by: Radha Harvey M.D. on 09/13/2022 at 18:45
--- NOTE | 2022-09-13 16:03 | DI.RAD.S_ITS ---
PROCEDURE: XR TIBIA FUBULA RT 2V INDICATIONS: right tibia pain TECHNIQUE: 2 views of the tibia and fibula were acquired. COMPARISON: None. FINDINGS: Bones: No fractures or dislocations. No suspicious bony lesions. Soft tissues: No suspicious soft tissue calcifications or masses. IMPRESSION: No osseous abnormalities. Dictated by: Aubrey Stout M.D. on 09/13/2022 at 17:27 Approved by: Aubrey Stout M.D. on 09/13/2022 at 17:29
== END ==
PROVIDERS: PCP Family Medicine; Referring Provider Family Medicine; Visit Provider Family Medicine
DX: M25.551 Pain in right hip (principal); M89.8X6 Other specified disorders of bone, lower leg
CPT/HCPCS: 73502; 73590

== ENCOUNTER → 2022-11-16 12:55 | Outpatient (CLI) | payer MEDICARE, OTHER, SELFPAY ==
--- NOTE | 2022-11-16 12:57 | DI.MG.S_ITS ---
BILATERAL DIGITAL SCREENING MAMMOGRAM 3D/2D WITH CAD: 11/16/2022 CLINICAL: Routine screening. Comparison is made to exams dated: 07/12/2020 mammogram, 03/31/2018 mammogram - [facility], and 12/03/2014 mammogram - [facility]. Both breasts are heterogeneously dense, which may obscure small masses (category c / 51-75% glandular tissue). Current study was also evaluated with a Computer Aided Detection (CAD) system. No significant masses, calcifications, or other findings are seen in either breast. There has been no significant interval change. IMPRESSION: NEGATIVE There is no mammographic evidence of malignancy. A 1 year screening mammogram is recommended. Based on the Tyrer Cuzick model (a risk assessment model) the patient's lifetime risk is 6.8% and her 10 year risk is 4.6%. According to the ACR, ACS, and NCCN guidelines, an annual breast MRI exam along with mammogram is recommended if the patient's lifetime risk is 20% or greater. This exam was interpreted at Station ID: [id number]. NOTE: For mammograms, a report in lay terms will be sent to the patient. Approximately 15% of breast malignancies will not be visualized mammographically. In the management of a palpable breast mass, a negative mammogram must not discourage biopsy of a clinically suspicious lesion. Electronically Signed By: Mason ambrocio/ariana:11/16/2022 14:03:10 letter sent: Normal Exam ACR BI-RADS Category 1: Negative [id number]
== END ==
PROVIDERS: PCP Family Medicine; Referring Provider Family Medicine; Visit Provider Family Medicine
DX: Z12.31 Encounter for screening mammogram for malignant neoplasm of breast (principal)
CPT/HCPCS: 77063; 77067

== ENCOUNTER → 2023-02-24 13:02 | Outpatient (CLI) | payer MEDICARE, OTHER, SELFPAY ==
--- NOTE | 2023-02-24 13:04 | DI.RAD.S_ITS ---
PROCEDURE: XR HAND RT MIN 3V INDICATIONS: Right hand middle finger injury TECHNIQUE: 3 views of the hand(s) acquired. COMPARISON: None. FINDINGS: Bones: Mild scattered degenerative changes. Dorsal bone fragment adjacent from the DIP joint Soft tissues: No suspicious calcifications. IMPRESSION: Dorsal 3rd finger DIP avulsion fracture. Dictated by: Zion Mensah M.D. on 02/24/2023 at 15:21 Approved by: Zion Mensah M.D. on 02/24/2023 at 15:22
== END ==
PROVIDERS: PCP Family Medicine; Referring Provider Registered Nurse; Visit Provider Registered Nurse
DX: S62.634A Displaced fracture of distal phalanx of right ring finger, initial encounter for closed fracture (principal); M79.641 Pain in right hand
CPT/HCPCS: 73130

== ENCOUNTER → 2023-03-14 16:45 | Outpatient (CLI) | payer MEDICARE, OTHER, SELFPAY ==
--- NOTE | 2023-03-14 16:49 | DI.RAD.S_ITS ---
PROCEDURE: XR FINGER RT MIN 2V INDICATIONS: f/u Finger fracture TECHNIQUE: AP hand, 2 views of the 3rd finger(s) acquired. COMPARISON: [facility], CR, XR HAND RT MIN 3V, 02/24/2023, 13:08. FINDINGS: Similar alignment of the previously demonstrated fracture of the 3rd digit distal phalanx dorsal base, mildly displaced. Fracture plane appears less distinct, possible progression of healing Polyarticular degenerative changes of the hand are present IMPRESSION: Similar alignment of the 3rd digit distal phalanx fracture Dictated by: Adrián Padilla M.D. on 03/14/2023 at 18:16 Approved by: Adrián Padilla M.D. on 03/14/2023 at 18:18
--- NOTE | 2023-03-14 16:49 | DI.US.S_ITS ---
PROCEDURE: US THYROID INDICATIONS: thyroid nodule TECHNIQUE: Real-time scanning was performed of the thyroid gland, with image documentation. COMPARISON: [facility], US, US THYROID, 12/03/2020, 13:29. FINDINGS: Right: Thyroid lobe measures 4.0 x 1.7 x 1.2 cm, and is homogeneous in echotexture. Left: Thyroid lobe measures 4.3 x 1.3 x 1.2 cm, and is homogenous in echotexture. Isthmus: 2 mm thick. Nodule number: 1 Location: Left middle pole Size: 1.1 x 0.5 x 0.7 cm, previously 1.4 x 0.6 x 1.0 cm. Composition: Solid Echogenicity: Markedly hypoechoic Shape: wider than tall. Margins: Smooth Echogenic foci: None Total points: 5 ACR TI-RADS category: Moderately suspicious Nodule number: 2 Location: Left upper pole Size: 0.5 x 0.3 x 0.4 cm, previously 0.5 x 0.3 x 0.4 cm. Composition: Solid Echogenicity: Hypoechoic Shape: wider than tall. Margins: Smooth Echogenic foci: None Total points: 4 ACR TI-RADS category: Moderately suspicious IMPRESSION: Thyroid nodules, as before. The larger nodule may have decreased in size. It is not of sufficient size to warrant FNA for tissue diagnosis at this time period based on the size of this nodule and its imaging characteristics, recommend follow-up ultrasound in 12 months. ACR TI-RADS definitions and recommendations: TI-RADS 1 (benign): 0 points. FNA not needed. TI-RADS 2 (not suspicious): 2 points. FNA not needed. TI-RADS 3 (mildly suspicious): 3 points. * FNA if 2.5 cm or larger, follow up if 1.5 cm or larger (at 1, 3, and 5 years). TI-RADS 4 (moderately suspicious): 4-6 points. * FNA if 1.5 cm or larger, follow up if 1 cm or larger (at 1, 2, 3, and 5 years). TI-RADS 5 (highly suspicious): 7 points or more. * FNA if 1 cm or larger, follow up if 0.5 cm or larger (every year for 5 years). Dictated by: Guille Welch M.D. on 03/15/2023 at 15:02 Approved by: Guille Welch M.D. on 03/15/2023 at 15:09
== END ==
PROVIDERS: PCP Family Medicine; Referring Provider Family Medicine; Visit Provider Family Medicine
DX: E04.2 Nontoxic multinodular goiter (principal); S62.632A Displaced fracture of distal phalanx of right middle finger, initial encounter for closed fracture; X58.XXXA Exposure to other specified factors, initial encounter
CPT/HCPCS: 73140; 76536

== ENCOUNTER → 2023-04-04 11:49 | Outpatient (CLI) | payer MEDICARE, OTHER, SELFPAY ==
--- NOTE | 2023-04-04 11:49 | DI.RAD.S_ITS ---
PROCEDURE: XR FINGER RT MIN 2V INDICATIONS: finger fracture TECHNIQUE: AP hand, 2 views of the right 3rd finger(s) acquired. COMPARISON: [facility], CR, XR FINGER RT MIN 2V, 03/14/2023, 16:47. FINDINGS: Bones: Dorsal plate fracture of the distal 3rd phalanx is redemonstrated. Bridging callus is now visualized. Fracture fragments are in unchanged anatomic alignment. Soft tissues: No suspicious soft tissue calcifications. IMPRESSION: Continued interval healing of the right 3rd distal phalangeal dorsal plate fracture. Dictated by: Lalitha Yoon M.D. on 04/04/2023 at 16:08 Approved by: Lalitha Yoon M.D. on 04/04/2023 at 16:09
== END ==
PROVIDERS: PCP Family Medicine; Referring Provider Family Medicine; Visit Provider Family Medicine
DX: S62.632D Displaced fracture of distal phalanx of right middle finger, subsequent encounter for fracture with routine healing (principal); X58.XXXD Exposure to other specified factors, subsequent encounter
CPT/HCPCS: 73140

== ENCOUNTER → 2023-05-02 12:31 | Outpatient (CLI) | payer MEDICARE, OTHER, SELFPAY ==
--- NOTE | 2023-05-02 12:34 | DI.RAD.S_ITS ---
PROCEDURE: XR FINGER RT MIN 2V INDICATIONS: F/U finger fracture TECHNIQUE: AP hand, 2 views of the 3rd finger(s) acquired. COMPARISON: [facility], , XR FINGER RT MIN 2V, 04/04/2023, 11:53. FINDINGS: Bones: Partially healed avulsion fracture off the dorsal aspect of the 3rd DIP is again noted with very faint bridging callus. There are moderate degenerative changes at the other interphalangeal joints. No acute fractures. Soft tissues: No suspicious soft tissue calcifications. IMPRESSION: Incomplete healing of 3rd DIP dorsal avulsion fracture. Dictated by: Radha Harvey M.D. on 05/02/2023 at 16:33 Approved by: Radha Harvey M.D. on 05/02/2023 at 16:35
== END ==
PROVIDERS: PCP Family Medicine; Referring Provider Family Medicine; Visit Provider Family Medicine
DX: S62.632G Displaced fracture of distal phalanx of right middle finger, subsequent encounter for fracture with delayed healing (principal); X58.XXXD Exposure to other specified factors, subsequent encounter
CPT/HCPCS: 73140

== ENCOUNTER → 2023-12-08 12:50 | Outpatient (CLI) | payer MEDICARE, OTHER, SELFPAY ==
--- NOTE | 2023-12-08 12:51 | DI.MG.S_ITS ---
BILATERAL DIGITAL SCREENING MAMMOGRAM 3D/2D WITH CAD: 12/08/2023 CLINICAL: Routine screening. Comparison is made to exams dated: 11/16/2022 mammogram, 07/12/2020 mammogram, and 03/31/2018 mammogram - [facility]. Both breasts are heterogeneously dense, which may obscure small masses (category c / 51-75% glandular tissue). Current study was also evaluated with a Computer Aided Detection (CAD) system. No significant masses, calcifications, or other findings are seen in either breast. There has been no significant interval change. IMPRESSION: NEGATIVE There is no mammographic evidence of malignancy. A 1 year screening mammogram is recommended. Based on the Tyrer Cuzick model (a risk assessment model) the patient's lifetime risk is 6.4% and her 10 year risk is 4.8%. According to the ACR, ACS, and NCCN guidelines, an annual breast MRI exam along with mammogram is recommended if the patient's lifetime risk is 20% or greater. This exam was interpreted at Station ID: [id number]. NOTE: For mammograms, a report in lay terms will be sent to the patient. Approximately 15% of breast malignancies will not be visualized mammographically. In the management of a palpable breast mass, a negative mammogram must not discourage biopsy of a clinically suspicious lesion. Electronically Signed By: Adrián jordan/ariana:12/08/2023 13:42:34 letter sent: Normal Exam ACR BI-RADS Category 1: Negative [id number]
== END ==
LOC: MAMMO 12:50
PROVIDERS: PCP Family Medicine; Referring Provider Family Medicine; Visit Provider Family Medicine
DX: Z12.31 Encounter for screening mammogram for malignant neoplasm of breast (principal); R92.333 Mammographic heterogeneous density, bilateral breasts
CPT/HCPCS: 77063; 77067

== ENCOUNTER → 2024-03-01 10:56 | Outpatient (CLI) | payer MEDICARE, OTHER, SELFPAY ==
[2024-03-01 11:52] LABS: Add Manual Diff / Slide Review NO; Basophils Absolute Auto 100 /uL (0-100); Basophils Percent Auto 1.5 % (0-2); Eosinophils Absolute Auto 100 /uL (0-450); Eosinophils Percent Auto 4.1 % (2-4); Hematocrit 40.4 % (36-46); Hemoglobin 13.3 g/dL (12.0-16.0); Lymphocytes Absolute Auto 1400 /uL (1100-4500); Lymphocytes Percent Auto 39.1 % (25-40); Mean Corpuscular HGB Conc 32.9 % (30-36); Mean Corpuscular Hemoglobin 30.6 PG (26-34); Mean Corpuscular Volume 92.8 fL (80-100); Monocytes Absolute Auto 300 /uL (0-900); Monocytes Percent Auto 8.1 % (3-14); Neutrophils Absolute Auto 1700 /uL (1500-7000); Neutrophils Percent Auto 47.2 % (50-75); Platelet Count 192 X10^3/uL (150-400); Red Blood Cell Count 4.35 X10^6/uL (4.0-5.2); Red Cell Distribution Width 13.8 % (11.6-14.8); White Blood Cell Count 3.7 X10^3/uL (4.5-11.0)
[2024-03-01 12:13] LABS: Erythrocyte Sedimentation Rate 6 MM/HR (0-20)
[2024-03-01 12:47] LABS: Alanine Aminotransferase 18 IU/L (<35); Albumin 4.1 g/dL (3.5-5.0); Albumin Globulin Ratio 1.4 (1.0-2.8); Alkaline Phosphatase 81 U/L (38-126); Aspartate Aminotransferase 27 IU/L (14-36); BUN Creatinine Ratio 26.3 (6-22); Bilirubin Total 0.6 mg/dL (0.2-1.3); Blood Urea Nitrogen 21 mg/dL (7-17); C-Reactive Protein Quant < 0.5 mg/dL (<1.0); Calcium 9.6 mg/dL (8.4-10.2); Carbon Dioxide 31 mmol/L (22-32); Chloride 104 mmol/L (98-107); Cholesterol 184 mg/dL (140-199); Estimated Glomerular Filt Rate > 60 mL/min (>60); Glucose 93 mg/dL (80-110); HDL Cholesterol 78 mg/dL (40-60); HEMOLYSIS < 15 (0-50); LDL Cholesterol Calculated 92 mg/dL (<100); Potassium 4.3 mmol/L (3.4-5.1); Sodium 138 mmol/L (137-145); Total Protein 7.1 g/dL (6.3-8.2); Triglycerides 68 mg/dL (35-150)
[2024-03-01 13:11] LABS: TSH w/ Reflex to FT4 1.36 uIU/mL (0.47-4.68)
== END ==
PROVIDERS: PCP Family Medicine; Referring Provider Family Medicine; Visit Provider Family Medicine
DX: E78.5 Hyperlipidemia, unspecified (principal); R53.83 Other fatigue; M35.3 Polymyalgia rheumatica; E04.1 Nontoxic single thyroid nodule
CPT/HCPCS: 36415; 80053; 80061; 84443; 85025; 85651; 86140

== ENCOUNTER → 2024-03-07 13:33 | Outpatient (CLI) | payer MEDICARE, OTHER, SELFPAY ==
[2024-03-07 17:15] LABS: Appearance Urine UA CLEAR; Bilirubin Urine UA NEGATIVE (NEGATIVE); Color Urine UA YELLOW; Glucose Urine UA NEGATIVE (Negative); Ketones Urine UA NEGATIVE (NEGATIVE); Leukocyte Esterase Urine UA NEGATIVE (NEGATIVE); Nitrite Urine UA NEGATIVE (Negative); Occult Blood Urine UA NEGATIVE (Negative); Protein Urine UA NEGATIVE (Negative); Specific Gravity Urine UA 1.015 (1.000-1.035); Urobilinogen Urine UA 0.2 E.U./dL (0.2)
[2024-03-07 17:51] LABS: Bacteria Urine None Seen; Culture Indicated Urine Cult Not Indicated; Squamous Epithelial Cell Urine None Seen (0-5/HPF); Urine Volume 10mL (spun); WBC Urine None Seen (0-5/HPF)
[2024-03-07 17:52] LABS: RBC Urine 1-5/HPF (0-5/HPF)
== END ==
LOC: LAB 13:34
PROVIDERS: PCP Family Medicine; Referring Provider Family Medicine; Visit Provider Family Medicine
DX: R30.0 Dysuria (principal)
CPT/HCPCS: 81001

== ENCOUNTER → 2024-03-09 12:08 | Outpatient (CLI) | payer MEDICARE, OTHER, SELFPAY ==
--- NOTE | 2024-03-09 12:09 | DI.US.S_ITS ---
PROCEDURE: US THYROID INDICATIONS: NODULES TECHNIQUE: Real-time scanning was performed of the thyroid gland, with image documentation. COMPARISON: [facility], US, US THYROID, 02/23/2019, 11:57. [facility], US, US THYROID, 03/14/2023, 17:00. FINDINGS: Thyroid: Right lobe measures 4.9 x 0.9 x 0.9 cm. Left lobe measures 4.1 x 0.7 x 1.0 cm. Isthmus is 0.1 cm thick. Echotexture is heterogeneous. Nodule number: 1 Location: Left midpole Size: 1.0 x 0.5 x 0.8 cm. Previously 1.1 x 0.5 x 0.7 cm. Composition: Solid Echogenicity: Markedly hypoechoic Shape: wider than tall. Margins: Ill-defined Echogenic foci: None Total points: 5 ACR TI-RADS category: 4 Additional subcentimeter thyroid nodules without any significant suspicious features. IMPRESSION: Stable moderate suspicion category nodule. This does not meet size criteria for biopsy. This has documented stability since 2019. No further follow-up is warranted per consensus guidelines. ACR TI-RADS definitions and recommendations: TI-RADS 1 (benign): 0 points. FNA not needed. TI-RADS 2 (not suspicious): 2 points. FNA not needed. TI-RADS 3 (mildly suspicious): 3 points. * FNA if 2.5 cm or larger, follow up if 1.5 cm or larger (at 1, 3, and 5 years). TI-RADS 4 (moderately suspicious): 4-6 points. * FNA if 1.5 cm or larger, follow up if 1 cm or larger (at 1, 2, 3, and 5 years). TI-RADS 5 (highly suspicious): 7 points or more. * FNA if 1 cm or larger, follow up if 0.5 cm or larger (every year for 5 years). Dictated by: Randal Thompson M.D. on 03/09/2024 at 14:35 Approved by: Randal Thompson M.D. on 03/09/2024 at 14:45
== END ==
LOC: US 12:08
PROVIDERS: PCP Family Medicine; Referring Provider Family Medicine; Visit Provider Family Medicine
DX: E04.1 Nontoxic single thyroid nodule (principal)
CPT/HCPCS: 76536

== ENCOUNTER → 2024-08-16 10:44 | Outpatient (CLI) | payer MEDICARE, OTHER, SELFPAY ==
[2024-08-16 12:47] LABS: HEMOLYSIS 19 (0-50); Iron 79 ug/dL (37-170)
[2024-08-16 12:58] LABS: Percent Iron Saturation 22 % (15-50); Total Iron Binding Capacity 367 ug/dL (265-497); Transferrin 297 mg/dL (206-381)
[2024-08-16 13:21] LABS: Ferritin 11 ng/mL (11-264)
== END ==
PROVIDERS: PCP Family Medicine; Referring Provider Internal Medicine Sleep Medicine; Visit Provider Internal Medicine Sleep Medicine
DX: E83.10 Disorder of iron metabolism, unspecified (principal); G25.81 Restless legs syndrome
CPT/HCPCS: 36415; 82728; 83540; 83550

== ENCOUNTER → 2024-09-06 12:13 | Outpatient (CLI) | payer MEDICARE, OTHER, SELFPAY ==
--- NOTE | 2024-09-06 12:15 | DI.RAD.S_ITS ---
PROCEDURE: XR HIP W PEL IF DONE RT 2V INDICATIONS: hip pain TECHNIQUE: Two views of the hip were acquired. COMPARISON: [facility], , XR HIP W PEL IF DONE RT 2V, 09/13/2022, 16:12. FINDINGS: Bones: There are no osseous abnormalities. SI and hip joints: Mild degenerative change present in the right hip featuring joint space narrowing subchondral cyst formation. There is only minimal degeneration in the left hip and both SI joints. Soft tissues: No soft tissue swelling, calcification or mass. Rate overlying the true pelvis likely a pessary IMPRESSION: Mild right hip degeneration-progressing since 2021 Dictated by: J Luis Hdez M.D. on 09/07/2024 at 9:01 Approved by: J Luis Hdez M.D. on 09/07/2024 at 9:02
== END ==
PROVIDERS: PCP Family Medicine; Referring Provider Family Medicine; Visit Provider Family Medicine
DX: M16.11 Unilateral primary osteoarthritis, right hip (principal); M25.551 Pain in right hip
CPT/HCPCS: 73502

== ENCOUNTER → 2024-12-14 15:15 | Outpatient (CLI) | payer MEDICARE, OTHER, SELFPAY ==
--- NOTE | 2024-12-14 15:16 | DI.MG.S_ITS ---
BILATERAL DIGITAL SCREENING MAMMOGRAM 3D/2D WITH CAD: 12/14/2024 CLINICAL: Routine screening. Comparison is made to exams dated: 12/08/2023 mammogram, 11/16/2022 mammogram, 07/12/2020 mammogram, and 03/31/2018 mammogram - [facility]. The breasts are heterogeneously dense, which may obscure small masses (category c / 51-75% glandular tissue). Current study was also evaluated with a Computer Aided Detection (CAD) system. No significant masses, calcifications, or other findings are seen in either breast. There has been no significant interval change. IMPRESSION: NEGATIVE There is no mammographic evidence of malignancy. A 1 year screening mammogram is recommended. Based on the Tyrer Cuzick model (a risk assessment model) the patient's lifetime risk is 6.0% and her 10 year risk is 4.9%. According to the ACR, ACS, and NCCN guidelines, an annual breast MRI exam along with mammogram is recommended if the patient's lifetime risk is 20% or greater. This exam was interpreted at Station ID: [id number]. NOTE: For mammograms, a report in lay terms will be sent to the patient. Approximately 15% of breast malignancies will not be visualized mammographically. In the management of a palpable breast mass, a negative mammogram must not discourage biopsy of a clinically suspicious lesion. Electronically Signed By: Concha Torres M.D., Ph.D. derian/ariana:12/17/2024 09:53:52 letter sent: Normal Exam ACR BI-RADS Category 1: Negative
== END ==
PROVIDERS: PCP Family Medicine; Referring Provider Family Medicine; Visit Provider Family Medicine
DX: Z12.31 Encounter for screening mammogram for malignant neoplasm of breast (principal); R92.333 Mammographic heterogeneous density, bilateral breasts
CPT/HCPCS: 77063; 77067

== ENCOUNTER → 2025-01-25 10:25 | Outpatient (CLI) | payer MEDICARE, OTHER, SELFPAY ==
[2025-01-25 11:13] LABS: Add Manual Diff / Slide Review NO; Basophils Absolute Auto 0 /uL (0-100); Basophils Percent Auto 1.1 % (0-2); Eosinophils Absolute Auto 100 /uL (0-450); Eosinophils Percent Auto 2.1 % (2-4); Hematocrit 40.9 % (36-46); Hemoglobin 13.6 g/dL (12.0-16.0); Lymphocytes Absolute Auto 1200 /uL (1100-4500); Lymphocytes Percent Auto 31.6 % (25-40); Mean Corpuscular HGB Conc 33.2 % (30-36); Mean Corpuscular Volume 96.4 fL (80-100); Monocytes Absolute Auto 300 /uL (0-900); Monocytes Percent Auto 6.9 % (3-14); Neutrophils Absolute Auto 2200 /uL (1500-7000); Neutrophils Percent Auto 58.3 % (50-75); Platelet Count 183 X10^3/uL (150-400); Red Blood Cell Count 4.25 X10^6/uL (4.0-5.2); Red Cell Distribution Width 13.7 % (11.6-14.8); White Blood Cell Count 3.8 X10^3/uL (4.5-11.0)
[2025-01-25 11:26] LABS: Iron 145 ug/dL (37-170)
[2025-01-25 11:27] LABS: Alanine Aminotransferase 21 IU/L (<35); Albumin 4.5 g/dL (3.5-5.0); Albumin Globulin Ratio 1.9 (1.0-2.8); Alkaline Phosphatase 66 U/L (38-126); Aspartate Aminotransferase 31 IU/L (14-36); BUN Creatinine Ratio 28.6 (6-22); Bilirubin Total 0.8 mg/dL (0.2-1.3); Blood Urea Nitrogen 24 mg/dL (7-17); Calcium 9.5 mg/dL (8.4-10.2); Carbon Dioxide 27 mmol/L (22-32); Chloride 104 mmol/L (98-107); Cholesterol 175 mg/dL (140-199); Estimated Glomerular Filt Rate > 60 mL/min (>60); Globulin 2.4 g/dL (1.7-4.1); Glucose 101 mg/dL (80-110); HDL Cholesterol 76 mg/dL (40-60); HEMOLYSIS < 15 (0-50); LDL Cholesterol Calculated 84 mg/dL (<100); Magnesium 2.2 mg/dL (1.6-2.3); Potassium 4.4 mmol/L (3.4-5.1); Sodium 139 mmol/L (137-145); Total Protein 6.9 g/dL (6.3-8.2); Triglycerides 73 mg/dL (35-150)
[2025-01-25 12:00] LABS: Ferritin 57 ng/mL (11-264)
== END ==
PROVIDERS: PCP Family Medicine; Referring Provider Family Medicine; Visit Provider Family Medicine
DX: G25.81 Restless legs syndrome (principal); E78.5 Hyperlipidemia, unspecified
CPT/HCPCS: 36415; 80053; 80061; 82728; 83540; 83735; 85025